=== PATIENT | male | born 1965 | race Caucasian/White ===

== ENCOUNTER → 2017-08-06 | Outpatient (CLI) | payer BC, SELFPAY | PROVIDERS: PCP Family Medicine; Visit Provider Family Medicine | DX: J90 Pleural effusion, not elsewhere classified (principal) | CPT/HCPCS: 71260; Q9967 ==

== ENCOUNTER → 2017-08-16 15:29 | Outpatient (CLI) | payer OTHER, SELFPAY ==
--- NOTE | 2017-08-16 15:35 | XR_ITS ---
XR chest 2V HISTORY: ITS.REASON: COUGH, PLEURAL EFFUSION ORDERING PHYSICIAN: Ramsey Mcdermott MD PATIENT AGE: 52 years COMPARISON: 07/12/2017 FINDINGS: The cardiomediastinal silhouette and pulmonary vascularity are within normal limits. There remains atelectatic changes in the right lung base. The right-sided pleural effusion has decreased in size with only trace effusion noted. Right middle lobe airspace disease has improved. Left pleural effusion is also decreased in size with only small sliver of fluid noted. IMPRESSION: 1. Improved bilateral effusions with persistent but improving right basilar atelectasis and right middle lobe consolidation
== END ==
PROVIDERS: PCP Family Medicine; Visit Provider Family Medicine
DX: R05 Cough (principal); J90 Pleural effusion, not elsewhere classified
CPT/HCPCS: 71046

== ENCOUNTER → 2017-10-04 11:06 | Outpatient (CLI) | payer OTHER, SELFPAY ==
--- NOTE | 2017-10-04 11:20 | XR_ITS ---
XR chest 2V HISTORY: ITS.REASON: PLEURAL EFFUSION ORDERING PHYSICIAN: Ramsey Mcdermott MD PATIENT AGE: 52 years COMPARISON: 08/16/2017 FINDINGS: Unremarkable cardiovascular structures. There remains some atelectatic changes in the right lung base and right middle lobe. There remains some minimal bilateral pleural effusions. No acute bony anomalies. IMPRESSION: Overall no change mild atelectasis in the right lower and right middle lobe with tiny bilateral effusions
[2017-10-04 11:42] LABS: Hemoglobin A1C 5.6 % (0.0-7.0)
[2017-10-04 13:47] LABS: Alanine Aminotransferase 52 U/L (12-78); Albumin Level 4.1 gm/dL (3.4-5.0); Albumin/Globulin Ratio 1.2 (1.1-1.8); Alkaline Phosphatase 109 U/L (46-116); Aspartate Amino Transferase 24 U/L (15-37); Bilirubin,Total 0.3 mg/dL (0.2-1.0); Blood Urea Nitrogen 19 mg/dL (7-18); Calcium 8.8 mg/dL (8.5-10.1); Carbon Dioxide 30 mmol/L (21.0-32.0); Chloride 102 mmol/L (98-107); Chol/HDL Ratio 3.9 (1-3.5); Cholesterol 207 mg/dL (140-200); Creatinine,Serum 1.29 mg/dL (0.70-1.30); Estimated Glomerular Filt Rate 58 ml/min (>60); GFR (African American) 70 ML/MIN (>60); Globulin 3.5 gm/dl (1.3-3.2); Glucose 107 mg/dL (74-106); HDL Cholesterol 53 mg/dL (27-67); LDL Cholesterol 113 mg/dL (0-130); Magnesium 1.8 mg/dL (1.4-2.2); Phosphorous 3.2 mg/dL (2.4-4.9); Sodium 140 mmol/L (136-145); Thyroid Stimulating Hormone 2.53 uIU/ml (0.358-3.740); Total Protein,Serum 7.6 gm/dL (6.4-8.2); Triglycerides 204 mg/dL (30-200); VLDL Cholesterol 41 mg/dL (0-40)
[2017-10-05 09:19] LABS: Creatinine, Urine 139.4 mg/dL (Not Estab.); Microalbumin, Urine 310.9 ug/mL (Not Estab.)
[2017-10-05 18:01] LABS: Vitamin B12 284 pg/mL (232-1245); Vitamin D 25 Hydroxy 15.4 ng/mL (30.0-100.0)
== END ==
LOC: RAD 11:06
PROVIDERS: PCP Family Medicine; Visit Provider Family Medicine
DX: R53.83 Other fatigue (principal); I10 Essential (primary) hypertension; E78.2 Mixed hyperlipidemia; R73.01 Impaired fasting glucose; J90 Pleural effusion, not elsewhere classified
CPT/HCPCS: 36415; 71046; 80053; 80061; 82043; 82570; 82607; 82652; 83036; 83735; 84100; 84443

== ENCOUNTER → 2019-11-16 07:34 | Outpatient (CLI) | payer OTHER, SELFPAY ==
[2019-11-16 07:40] LABS: Microscopic, Urine URINE MICROSCOPIC (MICROSCOPIC)
[2019-11-16 07:58] LABS: Basophils % 0.6 % (0.1-2.0); Eosinophils # 0.4 K/mm3 (0.0-0.4); Eosinophils % 6.7 % (0.1-12.0); Hematocrit 42.6 % (42.0-52.0); Hemoglobin 14.2 g/dL (14.1-18.0); Lymphocytes # 1.4 K/mm3 (0.7-4.5); Lymphocytes % 23.3 % (10-50); Mean Corpuscular HGB Conc 33.4 g/dL (31.8-35.4); Mean Corpuscular Hemoglobin 30.2 pg (27.0-31.2); Mean Corpuscular Volume 90.4 fl (80-94); Mean Platelet Volume 7.6 fl (7.4-10.4); Monocytes # 0.5 K/mm3 (0.1-1.0); Monocytes % 7.9 % (1.7-9.3); Neutrophils # 3.7 K/mm3 (1.8-7.8); Neutrophils % 61.6 % (37.0-80.0); Platelet Count 180 K/mm3 (142-424); Red Blood Count 4.71 M/mm3 (4.60-6.20); Red Cell Distribution Width 14.9 % (11.5-17.5)
[2019-11-16 10:24] LABS: Chloride 100 mmol/L (98-107); Potassium 3.2 mmoL/L (3.5-5.1); Sodium 140 mmol/L (136-145)
[2019-11-16 10:25] LABS: Albumin Level 4.1 g/dl (3.5-5.0)
[2019-11-16 10:27] LABS: Anion Gap 13.2 mEq/L (5-15); Blood Urea Nitrogen 34 mg/dl (9-20); Carbon Dioxide 30 mmol/L (22.0-30.0); Estimated Glomerular Filt Rate 28 ml/min (>60); GFR (African American) 34 ML/MIN (>60)
[2019-11-16 10:28] LABS: Calcium 9.4 mg/dl (8.4-10.2); Glucose 99 mg/dl (74-100); Phosphorous 3.3 mg/dl (2.5-4.5)
[2019-11-16 11:33] LABS: Appearance,Urine CLEAR (Clear); Bilirubin,Urine Negative (Negative); Blood, Urine TRACE-I (Negative); Color,Urine YELLOW (Yellow); Glucose,Urine (UA) Negative (Negative); Ketones,Urine Negative (Negative); Leukocyte Esterase,Urine Negative (Negative); Nitrate,Urine Negative (Negative); Protein,Urine 2+ (Negative); Urobilinogen,Urine 0.2 EU/dl (0.2)
[2019-11-16 11:47] LABS: Creatinine,Urine Random 89 mg/dL (Not Estab.); Squamous Epithelial Cell,Urine Occasional #/hpf (0-5); WBC,Urine Occasional #/hpf (0-3)
[2019-11-17 08:03] LABS: Vitamin D 25 Hydroxy 25.9 ng/mL (30.0-100.0)
[2019-11-17 14:58] LABS: Parathyroid Hormone Intact 73 pg/mL (15-65)
== END ==
LOC: LAB 07:35
PROVIDERS: Visit Provider Internal Medicine Nephrology
DX: N18.3 Chronic kidney disease, stage 3 (moderate) (principal)
CPT/HCPCS: 36415; 80069; 81001; 82570; 82652; 83970; 84155; 85025

== ENCOUNTER → 2020-02-01 14:17 | Outpatient (CLI) | payer OTHER, SELFPAY ==
[2020-02-01 14:27] LABS: Microscopic, Urine URINE MICROSCOPIC (MICROSCOPIC)
[2020-02-01 15:13] LABS: Appearance,Urine CLEAR (Clear); Bilirubin,Urine Negative (Negative); Blood, Urine TRACE-L (Negative); Color,Urine YELLOW (Yellow); Glucose,Urine (UA) Negative (Negative); Ketones,Urine Negative (Negative); Leukocyte Esterase,Urine Negative (Negative); Nitrate,Urine Negative (Negative); Protein,Urine 3+ (Negative); Specific Gravity, Urine >= 1.030 (1.005-1.030); Urobilinogen,Urine 0.2 EU/dl (0.2)
[2020-02-01 15:25] LABS: WBC,Urine Occasional #/hpf (0-3)
[2020-02-01 15:26] LABS: Bacteria,Urine Trace /lpf; Squamous Epithelial Cell,Urine Occasional #/hpf (0-5)
[2020-02-01 15:28] LABS: Creatinine,Urine Random 253 mg/dL (Not Estab.)
[2020-02-01 15:59] LABS: Albumin Level 4.2 g/dl (3.5-5.0); Anion Gap 14.9 mEq/L (5-15); Blood Urea Nitrogen 29 mg/dl (9-20); Calcium 9.1 mg/dl (8.4-10.2); Carbon Dioxide 27 mmol/L (22.0-30.0); Chloride 100 mmol/L (98-107); Estimated Glomerular Filt Rate 24 ml/min (>60); GFR (African American) 29 ML/MIN (>60); Glucose 97 mg/dl (74-100); Sodium 139 mmol/L (136-145)
[2020-02-01 16:16] LABS: Potassium 2.9 mmoL/L (3.5-5.1)
[2020-02-03 08:40] LABS: HIV Screen 4th Generation wRfx Non Reactive (Non Reactive)
[2020-02-03 10:14] LABS: Hep A Ab, IgM Negative (Negative); Hepatitis B Core Antibody IgM Negative (Negative); Hepatitis B Surface Antigen Negative (Negative)
[2020-02-03 10:59] LABS: Complement C3 131 mg/dL (82-167); Hepatitis C Antibody <0.1 s/co ratio (0.0-0.9)
[2020-02-03 15:10] LABS: Immunoglobulin A, Qn 349 mg/dL (90-386); Immunoglobulin G, Qn 1000 mg/dL (603-1613)
[2020-02-03 17:09] LABS: Free Kappa Lt Chains 55.5 mg/L (3.3-19.4); Free Lambda Lt Chains 38.2 mg/L (5.7-26.3)
[2020-02-04 01:39] LABS: Immunoglobulin M, Qn 15 mg/dL (20-172)
[2020-02-13 18:27] LABS: Antinuclear Antibodies (ANA) NEGATIVE
[2020-02-13 18:28] LABS: Albumin 3.6; Alpha-1-Globulin 0.1; Alpha-2-Globulin 0.9; Protein, Total 6.7
== END ==
LOC: LAB 14:18
PROVIDERS: Visit Provider Internal Medicine Nephrology
DX: N18.3 Chronic kidney disease, stage 3 (moderate) (principal); R80.9 Proteinuria, unspecified
CPT/HCPCS: 36415; 80069; 80074; 81001; 82570; 82784; 83883; 84155; 84165; 86038; 86161; 86334; 86703; G0432

== ENCOUNTER → 2020-02-05 14:30 | Outpatient (CLI) | payer OTHER, SELFPAY ==
--- NOTE | 2020-02-05 14:54 | US_ITS ---
PROCEDURE: US KIDNEY CLINICAL INDICATION: CKD STAGE III COMPARISON: No exams were available for comparison FINDINGS: The right kidney is [id number]. Mild hydronephrosis is noted. There is some over increase in renal cortical echogenicity. The left kidney is [id number]. Moderate hydronephrosis is demonstrated. There is abnormal increased renal cortical echogenicity. IMPRESSION: Bilateral hydronephrosis, increased bilateral renal cortical echogenicity consistent with chronic renal disease. Dictated by: Neil Oliva 02/05/2020 16:14 Electronically signed by Neil Oliva in [place] 02/05/2020 16:14
== END ==
PROVIDERS: PCP Family Medicine; Visit Provider Internal Medicine Nephrology
DX: N18.3 Chronic kidney disease, stage 3 (moderate) (principal)
CPT/HCPCS: 76770

== ENCOUNTER → 2020-02-09 14:15 | Outpatient (CLI) | payer OTHER, SELFPAY ==
[2020-02-09 15:14] LABS: Chloride 103 mmol/L (98-107); Potassium 3.5 mmoL/L (3.5-5.1); Sodium 139 mmol/L (136-145)
[2020-02-09 15:17] LABS: Blood Urea Nitrogen 34 mg/dl (9-20)
[2020-02-09 15:18] LABS: Anion Gap 9.5 mEq/L (5-15); Calcium 9.2 mg/dl (8.4-10.2); Carbon Dioxide 30 mmol/L (22.0-30.0); Estimated Glomerular Filt Rate 26 ml/min (>60); GFR (African American) 31 ML/MIN (>60); Glucose 91 mg/dl (74-100)
== END ==
PROVIDERS: Visit Provider Internal Medicine Nephrology
DX: E87.6 Hypokalemia (principal)
CPT/HCPCS: 36415; 80048

== ENCOUNTER → 2020-02-11 13:40 | Outpatient (POV) | payer OTHER, SELFPAY | PROVIDERS: Visit Provider Internal Medicine Nephrology | DX: Z00.00 Encounter for general adult medical examination without abnormal findings (principal) ==

== ENCOUNTER → 2020-03-08 14:07 | Outpatient (CLI) | payer OTHER, SELFPAY ==
--- NOTE | 2020-03-08 14:14 | CT_ITS ---
PROCEDURE: CT ABDOMEN PELVIS WO CON CLINICAL INDICATION: HYDRONEPHROSIS, BILATERAL Lower kidney function. COMPARISON: No exams were available for comparison TECHNIQUE: Axial images obtained with sagittal and coronal reformats. All CT scans at the facility use one or more dose reduction, viz: automated exposure control, ma/kV adjustment per patient size (including targeted exams where dose is matched to indication, i.e. head), or iterative reconstruction technique. FINDINGS: LOWER THORAX: No acute finding. Fibrotic atelectatic changes are seen inferiorly in the lingula and posteriorly in the right lower lung. The heart appears top normal in size. ABDOMEN & PELVIS: Hepatobiliary: The liver has a normal size with a smooth surface. The hepatic and portal veins are grossly appear patent. There is a partially contracted gallbladder. The biliary ductal system is within normal limits. Pancreas: Normal unenhanced pancreas. Spleen: The spleen is not enlarged. Small calcified granuloma is present. Adrenals: There is a 1.5 centimeters left adrenal nodule is seen probably an adenoma although alternative etiologies not ruled out. Normal right adrenal gland. Kidneys, ureters and bladder: Both kidneys have normal. Multiple parapelvic renal cysts are seen bilaterally, left side more than the right. The largest is a 4.3 centimeter cyst seen in upper/mid left kidney. A small 2 millimeter calcification is seen at the left renal pelvis, likely a vascular. There is left renal cortical mild thinning. Neither kidney shows calculi or evidence of hydronephrosis. Both ureters have normal course and caliber. The urinary bladder is partially empty. No ureteral or bladder calculus is identified. Gastrointestinal: The stomach and small bowel are normal with no obstruction or inflammation. The large bowel is within normal limits. Moderate amount of retained stool is seen in the ascending and transverse colon. Reproductive organs: Normal size prostate gland. Lymphatic system: A few small para-aortic reactive lymph nodes are seen. Otherwise no significant adenopathy is demonstrated within the abdomen/pelvis. Vasculature: Moderate atherosclerotic calcification of the infrarenal aorta. Normal caliber abdominal aorta. Peritoneum: No free fluid, free air or inflammation. Abdominal wall and musculoskeletal: There is a moderately large size umbilical hernia seen containing omental fat. Multiple small reactive bilateral inguinal lymph nodes. Straightening of normal lumbar lordosis. Degenerative thoracolumbar endplate spondylosis with anterior marginal osteophytes. IMPRESSION: 1. No acute finding demonstrated in the abdomen/pelvis 2. Neither kidney shows calculi or evidence of hydronephrosis. Multiple parapelvic renal cysts are seen, left side more than the right. 3. A moderately large size umbilical hernia is seen containing omental fat. Dictated by: Madi Washington 03/08/2020 16:04 Electronically signed by Madi Washington in [facility] 03/08/2020 16:04
[2020-03-08 14:43] LABS: Microscopic, Urine URINE MICROSCOPIC (MICROSCOPIC)
[2020-03-08 15:21] LABS: Albumin Level 4.4 g/dl (3.5-5.0); Blood Urea Nitrogen 29 mg/dl (9-20); Calcium 9.2 mg/dl (8.4-10.2); Carbon Dioxide 27 mmol/L (22.0-30.0); Chloride 101 mmol/L (98-107); Estimated Glomerular Filt Rate 22 ml/min (>60); GFR (African American) 26 ML/MIN (>60); Glucose 98 mg/dl (74-100); Sodium 140 mmol/L (136-145)
[2020-03-08 15:26] LABS: Appearance,Urine CLEAR (Clear); Bilirubin,Urine Negative (Negative); Blood, Urine 2+ (Negative); Color,Urine YELLOW (Yellow); Glucose,Urine (UA) Negative (Negative); Ketones,Urine Negative (Negative); Leukocyte Esterase,Urine Negative (Negative); Nitrate,Urine Negative (Negative); Protein,Urine 2+ (Negative); Specific Gravity, Urine >= 1.030 (1.005-1.030); Urobilinogen,Urine 0.2 EU/dl (0.2)
[2020-03-08 15:54] LABS: Creatinine,Urine Random 203 mg/dL (Not Estab.)
[2020-03-08 16:11] LABS: Phosphorous 3.5 mg/dl (2.5-4.5)
[2020-03-08 16:57] LABS: Bacteria,Urine Trace /lpf; RBC,Urine Occasional #/hpf (0-3); Squamous Epithelial Cell,Urine Occasional #/hpf (0-5); WBC,Urine Occasional #/hpf (0-3)
== END ==
PROVIDERS: PCP Family Medicine; Visit Provider Internal Medicine Nephrology
DX: N18.3 Chronic kidney disease, stage 3 (moderate) (principal); N13.30 Unspecified hydronephrosis
CPT/HCPCS: 36415; 74176; 80048; 80069; 81001; 82570; 84155

== ENCOUNTER → 2020-04-11 14:15 | Outpatient (CLI) | payer OTHER, SELFPAY ==
[2020-04-11 14:19] LABS: Microscopic, Urine URINE MICROSCOPIC (MICROSCOPIC)
[2020-04-11 14:32] LABS: Appearance,Urine CLEAR (Clear); Bilirubin,Urine Negative (Negative); Blood, Urine 2+ (Negative); Color,Urine YELLOW (Yellow); Glucose,Urine (UA) Negative (Negative); Ketones,Urine Negative (Negative); Leukocyte Esterase,Urine Negative (Negative); Nitrate,Urine Negative (Negative); Protein,Urine 3+ (Negative); Specific Gravity, Urine 1.025 (1.005-1.030); Urobilinogen,Urine 0.2 EU/dl (0.2)
[2020-04-11 15:29] LABS: Chloride 101 mmol/L (98-107)
[2020-04-11 15:30] LABS: Albumin Level 4.2 g/dl (3.5-5.0); Potassium 3.8 mmoL/L (3.5-5.1); Sodium 137 mmol/L (136-145)
[2020-04-11 15:32] LABS: Blood Urea Nitrogen 29 mg/dl (9-20); Estimated Glomerular Filt Rate 23 ml/min (>60); GFR (African American) 27 ML/MIN (>60)
[2020-04-11 15:33] LABS: Anion Gap 14.8 mEq/L (5-15); Calcium 9.3 mg/dl (8.4-10.2); Carbon Dioxide 25 mmol/L (22.0-30.0); Glucose 96 mg/dl (74-100); Phosphorous 4.2 mg/dl (2.5-4.5)
== END ==
PROVIDERS: Visit Provider Internal Medicine Nephrology
DX: N18.4 Chronic kidney disease, stage 4 (severe) (principal)
CPT/HCPCS: 36415; 80069; 81001

== ENCOUNTER → 2020-04-24 11:29 | Outpatient (CLI) | payer OTHER, SELFPAY ==
[2020-04-25 11:48] LABS: Covid-19 Nasal PCR Sendout UK NOT DETECTED
== END ==
PROVIDERS: PCP Family Medicine; Visit Provider Emergency Medicine
DX: Z03.818 Encounter for observation for suspected exposure to other biological agents ruled out (principal)
CPT/HCPCS: U0003

== ENCOUNTER → 2020-05-05 16:05 | Outpatient (CLI) | payer OTHER, SELFPAY ==
[2020-05-05 16:08] LABS: Microscopic, Urine URINE MICROSCOPIC (MICROSCOPIC)
[2020-05-05 16:28] LABS: Appearance,Urine CLEAR (Clear); Bilirubin,Urine Negative (Negative); Blood, Urine 2+ (Negative); Color,Urine YELLOW (Yellow); Glucose,Urine (UA) Negative (Negative); Ketones,Urine Negative (Negative); Leukocyte Esterase,Urine Negative (Negative); Nitrate,Urine Negative (Negative); Protein,Urine 3+ (Negative); Specific Gravity, Urine 1.025 (1.005-1.030); Urobilinogen,Urine 0.2 EU/dl (0.2)
[2020-05-05 16:30] LABS: Basophils # 0.1 K/mm3 (0-0.2); Basophils % 0.6 % (0.1-2.0); Eosinophils # 0.7 K/mm3 (0.0-0.4); Eosinophils % 7.3 % (0.1-12.0); Hematocrit 38.5 % (42.0-52.0); Hemoglobin 13.5 g/dL (14.1-18.0); Lymphocytes # 1.9 K/mm3 (0.7-4.5); Lymphocytes % 20.7 % (10-50); Mean Corpuscular HGB Conc 35.2 g/dL (31.8-35.4); Mean Corpuscular Volume 91.1 fl (80-94); Mean Platelet Volume 6.9 fl (7.4-10.4); Monocytes # 0.9 K/mm3 (0.1-1.0); Monocytes % 9.6 % (1.7-9.3); Neutrophils # 5.6 K/mm3 (1.8-7.8); Neutrophils % 61.8 % (37.0-80.0); Platelet Count 204 K/mm3 (142-424); Red Blood Count 4.23 M/mm3 (4.60-6.20); Red Cell Distribution Width 14.8 % (11.5-17.5)
[2020-05-05 16:34] LABS: Creatinine,Urine Random 161 mg/dL (Not Estab.)
[2020-05-05 17:01] LABS: Squamous Epithelial Cell,Urine Occasional #/hpf (0-5)
[2020-05-05 20:28] LABS: Albumin Level 4.3 g/dl (3.5-5.0); Chloride 103 mmol/L (98-107); Potassium 4.6 mmoL/L (3.5-5.1); Sodium 136 mmol/L (136-145)
[2020-05-05 20:31] LABS: Anion Gap 16.6 mEq/L (5-15); Blood Urea Nitrogen 39 mg/dl (9-20); Carbon Dioxide 21 mmol/L (22.0-30.0); Estimated Glomerular Filt Rate 18 ml/min (>60); GFR (African American) 21 ML/MIN (>60); Phosphorous 4.3 mg/dl (2.5-4.5)
[2020-05-05 20:32] LABS: Glucose 131 mg/dl (74-100)
== END ==
PROVIDERS: Visit Provider Internal Medicine Nephrology
DX: I12.9 Hypertensive chronic kidney disease with stage 1 through stage 4 chronic kidney disease, or unspecified chronic kidney disease (principal); N18.4 Chronic kidney disease, stage 4 (severe)
CPT/HCPCS: 36415; 80069; 81001; 82570; 84155; 85025

== ENCOUNTER → 2020-05-19 14:31 | Outpatient (CLI) | payer OTHER, SELFPAY ==
[2020-05-19 17:13] LABS: Chloride 104 mmol/L (98-107)
[2020-05-19 17:14] LABS: Albumin Level 4.5 g/dl (3.5-5.0); Potassium 4.2 mmoL/L (3.5-5.1); Sodium 137 mmol/L (136-145)
[2020-05-19 17:16] LABS: Blood Urea Nitrogen 52 mg/dl (9-20); Estimated Glomerular Filt Rate 18 ml/min (>60); GFR (African American) 21 ML/MIN (>60)
[2020-05-19 17:17] LABS: Anion Gap 17.2 mEq/L (5-15); Calcium 9.2 mg/dl (8.4-10.2); Carbon Dioxide 20 mmol/L (22.0-30.0); Glucose 93 mg/dl (74-100); Phosphorous 4.8 mg/dl (2.5-4.5)
== END ==
PROVIDERS: Visit Provider Internal Medicine Nephrology
DX: I12.9 Hypertensive chronic kidney disease with stage 1 through stage 4 chronic kidney disease, or unspecified chronic kidney disease (principal); N18.4 Chronic kidney disease, stage 4 (severe)
CPT/HCPCS: 36415; 80069

== ENCOUNTER → 2020-05-23 14:52 | Outpatient (POV) | payer OTHER, SELFPAY | PROVIDERS: Visit Provider Internal Medicine Nephrology | DX: Z00.00 Encounter for general adult medical examination without abnormal findings (principal) ==

== ENCOUNTER → 2020-06-07 16:05 | Outpatient (CLI) | payer OTHER, SELFPAY ==
[2020-06-07 16:10] LABS: Microscopic, Urine URINE MICROSCOPIC (MICROSCOPIC)
[2020-06-07 16:48] LABS: Basophils % 0.5 % (0.1-2.0); Eosinophils # 0.4 K/mm3 (0.0-0.4); Eosinophils % 5.4 % (0.1-12.0); Hematocrit 37.2 % (42.0-52.0); Hemoglobin 12.7 g/dL (14.1-18.0); Lymphocytes # 1.5 K/mm3 (0.7-4.5); Lymphocytes % 19.4 % (10-50); Mean Corpuscular HGB Conc 34.2 g/dL (31.8-35.4); Mean Corpuscular Hemoglobin 30.8 pg (27.0-31.2); Mean Corpuscular Volume 90.2 fl (80-94); Mean Platelet Volume 7.6 fl (7.4-10.4); Monocytes # 0.7 K/mm3 (0.1-1.0); Monocytes % 9.9 % (1.7-9.3); Neutrophils # 4.9 K/mm3 (1.8-7.8); Neutrophils % 64.8 % (37.0-80.0); Platelet Count 214 K/mm3 (142-424); Red Blood Count 4.13 M/mm3 (4.60-6.20); Red Cell Distribution Width 13.9 % (11.5-17.5); White Blood Count 7.5 K/mm3 (4.8-10.8)
[2020-06-07 16:55] LABS: Appearance,Urine CLEAR (Clear); Bilirubin,Urine Negative (Negative); Blood, Urine 1+ (Negative); Color,Urine YELLOW (Yellow); Glucose,Urine (UA) Negative (Negative); Ketones,Urine Negative (Negative); Leukocyte Esterase,Urine Negative (Negative); Nitrate,Urine Negative (Negative); Protein,Urine 1+ (Negative); Urobilinogen,Urine 0.2 EU/dl (0.2)
[2020-06-07 16:58] LABS: Chloride 96 mmol/L (98-107); Sodium 136 mmol/L (136-145)
[2020-06-07 16:59] LABS: Albumin Level 4.4 g/dl (3.5-5.0); Potassium 3.5 mmoL/L (3.5-5.1)
[2020-06-07 17:00] LABS: Creatinine,Urine Random 90 mg/dL (Not Estab.)
[2020-06-07 17:01] LABS: Blood Urea Nitrogen 48 mg/dl (9-20); Estimated Glomerular Filt Rate 18 ml/min (>60); GFR (African American) 21 ML/MIN (>60)
[2020-06-07 17:02] LABS: Anion Gap 14.5 mEq/L (5-15); Calcium 9.2 mg/dl (8.4-10.2); Carbon Dioxide 29 mmol/L (22.0-30.0); Glucose 111 mg/dl (74-100); Phosphorous 4.8 mg/dl (2.5-4.5)
[2020-06-07 17:48] LABS: Bacteria,Urine Trace /lpf; Squamous Epithelial Cell,Urine Occasional #/hpf (0-5); WBC,Urine Occasional #/hpf (0-3)
== END ==
PROVIDERS: Visit Provider Internal Medicine Nephrology
DX: N18.4 Chronic kidney disease, stage 4 (severe) (principal)
CPT/HCPCS: 36415; 80069; 81001; 82570; 84155; 85025

== ENCOUNTER → 2020-07-18 16:06 | Outpatient (CLI) | payer OTHER, SELFPAY ==
[2020-07-18 16:14] LABS: Microscopic, Urine URINE MICROSCOPIC (MICROSCOPIC)
[2020-07-18 16:37] LABS: Basophils % 0.5 % (0.1-2.0); Eosinophils # 0.4 K/mm3 (0.0-0.4); Eosinophils % 4.7 % (0.1-12.0); Hematocrit 40.6 % (42.0-52.0); Hemoglobin 13.5 g/dL (14.1-18.0); Lymphocytes # 1.9 K/mm3 (0.7-4.5); Lymphocytes % 24.9 % (10-50); Mean Corpuscular HGB Conc 33.4 g/dL (31.8-35.4); Mean Corpuscular Hemoglobin 30.4 pg (27.0-31.2); Mean Corpuscular Volume 91.2 fl (80-94); Mean Platelet Volume 7.3 fl (7.4-10.4); Monocytes # 0.7 K/mm3 (0.1-1.0); Monocytes % 8.4 % (1.7-9.3); Neutrophils # 4.7 K/mm3 (1.8-7.8); Neutrophils % 61.5 % (37.0-80.0); Platelet Count 225 K/mm3 (142-424); Red Blood Count 4.45 M/mm3 (4.60-6.20); Red Cell Distribution Width 14.2 % (11.5-17.5); White Blood Count 7.7 K/mm3 (4.8-10.8)
[2020-07-18 18:54] LABS: Albumin Level 4.7 g/dl (3.5-5.0); Anion Gap 16.9 mEq/L (5-15); Blood Urea Nitrogen 53 mg/dl (9-20); Calcium 9.5 mg/dl (8.4-10.2); Carbon Dioxide 24 mmol/L (22.0-30.0); Chloride 100 mmol/L (98-107); Estimated Glomerular Filt Rate 16 ml/min (>60); GFR (African American) 19 ML/MIN (>60); Glucose 96 mg/dl (74-100); Phosphorous 4.6 mg/dl (2.5-4.5); Potassium 3.9 mmoL/L (3.5-5.1); Sodium 137 mmol/L (136-145)
[2020-07-18 20:10] LABS: Appearance,Urine CLEAR (Clear); Bilirubin,Urine Negative (Negative); Blood, Urine Negative (Negative); Color,Urine YELLOW (Yellow); Glucose,Urine (UA) Negative (Negative); Ketones,Urine Negative (Negative); Leukocyte Esterase,Urine Negative (Negative); Nitrate,Urine Negative (Negative); Protein,Urine 1+ (Negative); Specific Gravity, Urine 1.025 (1.005-1.030); Urobilinogen,Urine 0.2 EU/dl (0.2)
[2020-07-18 20:14] LABS: Amorphous Sediment,Urine Trace /lpf
[2020-07-18 20:19] LABS: Creatinine,Urine Random 128 mg/dL (Not Estab.)
== END ==
PROVIDERS: Visit Provider Internal Medicine Nephrology
DX: I10 Essential (primary) hypertension (principal); N18.4 Chronic kidney disease, stage 4 (severe)
CPT/HCPCS: 36415; 80069; 81001; 82570; 84155; 85025

== ENCOUNTER → 2020-07-25 14:13 | Outpatient (POV) | payer OTHER, SELFPAY | PROVIDERS: Visit Provider Internal Medicine Nephrology | DX: Z00.00 Encounter for general adult medical examination without abnormal findings (principal) ==

== ENCOUNTER → 2020-08-15 14:21 | Outpatient (CLI) | payer OTHER, SELFPAY ==
[2020-08-15 14:26] LABS: Microscopic, Urine URINE MICROSCOPIC (MICROSCOPIC)
[2020-08-15 14:50] LABS: Appearance,Urine CLEAR (Clear); Bilirubin,Urine Negative (Negative); Blood, Urine Negative (Negative); Color,Urine YELLOW (Yellow); Glucose,Urine (UA) Negative (Negative); Ketones,Urine Negative (Negative); Leukocyte Esterase,Urine Negative (Negative); Nitrate,Urine Negative (Negative); Protein,Urine 1+ (Negative); Urobilinogen,Urine 0.2 EU/dl (0.2)
[2020-08-15 14:51] LABS: Basophils # 0.1 K/mm3 (0-0.2); Basophils % 0.7 % (0.1-2.0); Eosinophils # 0.4 K/mm3 (0.0-0.4); Eosinophils % 4.9 % (0.1-12.0); Hematocrit 41.2 % (42.0-52.0); Hemoglobin 14.2 g/dL (14.1-18.0); Lymphocytes # 1.5 K/mm3 (0.7-4.5); Lymphocytes % 20.2 % (10-50); Mean Corpuscular HGB Conc 34.5 g/dL (31.8-35.4); Mean Corpuscular Hemoglobin 31.4 pg (27.0-31.2); Mean Platelet Volume 7.5 fl (7.4-10.4); Monocytes # 0.7 K/mm3 (0.1-1.0); Monocytes % 9.3 % (1.7-9.3); Neutrophils # 4.7 K/mm3 (1.8-7.8); Neutrophils % 64.9 % (37.0-80.0); Platelet Count 251 K/mm3 (142-424); Red Blood Count 4.53 M/mm3 (4.60-6.20); Red Cell Distribution Width 14.7 % (11.5-17.5); White Blood Count 7.3 K/mm3 (4.8-10.8)
[2020-08-15 15:21] LABS: RBC,Urine Occasional #/hpf (0-3)
[2020-08-15 15:26] LABS: Albumin Level 4.8 g/dl (3.5-5.0); Anion Gap 17.1 mEq/L (5-15); Blood Urea Nitrogen 52 mg/dl (9-20); Calcium 9.6 mg/dl (8.4-10.2); Carbon Dioxide 25 mmol/L (22.0-30.0); Chloride 100 mmol/L (98-107); Estimated Glomerular Filt Rate 18 ml/min (>60); GFR (African American) 21 ML/MIN (>60); Glucose 102 mg/dl (74-100); Phosphorous 4.6 mg/dl (2.5-4.5); Potassium 4.1 mmoL/L (3.5-5.1); Sodium 138 mmol/L (136-145)
[2020-08-15 15:39] LABS: Intact Parathyroid Hormone 222.8 pg/mL (7.5-53.5)
[2020-08-15 15:43] LABS: 25-OH Vitamin D, Total 29.5 ng/mL (30-100)
[2020-08-15 15:51] LABS: Creatinine,Urine Random 137 mg/dL (Not Estab.)
== END ==
PROVIDERS: Visit Provider Internal Medicine Nephrology
DX: I12.9 Hypertensive chronic kidney disease with stage 1 through stage 4 chronic kidney disease, or unspecified chronic kidney disease (principal); N18.4 Chronic kidney disease, stage 4 (severe)
CPT/HCPCS: 36415; 80069; 81001; 82306; 82330; 82570; 83970; 84155; 85025

== ENCOUNTER → 2020-08-22 14:26 | Outpatient (POV) | payer OTHER, SELFPAY | PROVIDERS: Visit Provider Internal Medicine Nephrology | DX: Z00.00 Encounter for general adult medical examination without abnormal findings (principal) ==

== ENCOUNTER → 2020-11-10 10:33 | Outpatient (CLI) | payer OTHER, SELFPAY ==
[2020-11-10 10:36] LABS: Microscopic, Urine URINE MICROSCOPIC (MICROSCOPIC)
[2020-11-10 11:02] LABS: Appearance,Urine CLEAR (Clear); Bilirubin,Urine Negative (Negative); Blood, Urine Negative (Negative); Color,Urine YELLOW (Yellow); Glucose,Urine (UA) Negative (Negative); Ketones,Urine Negative (Negative); Leukocyte Esterase,Urine Negative (Negative); Nitrate,Urine Negative (Negative); PH,Urine 5.5 (5.0-8.5); Protein,Urine Negative (Negative); Urobilinogen,Urine 0.2 EU/dl (0.2)
[2020-11-10 11:04] LABS: Basophils % 0.5 % (0.1-2.0); Eosinophils # 0.4 K/mm3 (0.0-0.4); Eosinophils % 6.8 % (0.1-12.0); Hematocrit 39.2 % (42.0-52.0); Lymphocytes # 1.1 K/mm3 (0.7-4.5); Mean Corpuscular HGB Conc 33.3 g/dL (31.8-35.4); Mean Corpuscular Hemoglobin 30.3 pg (27.0-31.2); Mean Platelet Volume 7.6 fl (7.4-10.4); Monocytes # 0.5 K/mm3 (0.1-1.0); Monocytes % 9.7 % (1.7-9.3); Neutrophils # 3.4 K/mm3 (1.8-7.8); Neutrophils % 63.1 % (37.0-80.0); Platelet Count 183 K/mm3 (142-424); Red Blood Count 4.31 M/mm3 (4.60-6.20); Red Cell Distribution Width 13.7 % (11.5-17.5); White Blood Count 5.4 K/mm3 (4.8-10.8)
[2020-11-10 11:10] LABS: Creatinine,Urine Random 79 mg/dL (Not Estab.)
[2020-11-10 11:11] LABS: Squamous Epithelial Cell,Urine Occasional #/hpf (0-5); WBC,Urine Occasional #/hpf (0-3)
[2020-11-10 11:36] LABS: Albumin Level 4.7 g/dl (3.5-5.0); Anion Gap 16.8 mEq/L (5-15); Blood Urea Nitrogen 57 mg/dl (9-20); Calcium 9.5 mg/dl (8.4-10.2); Carbon Dioxide 20 mmol/L (22.0-30.0); Chloride 105 mmol/L (98-107); Estimated Glomerular Filt Rate 19 ml/min (>60); GFR (African American) 24 ML/MIN (>60); Glucose 114 mg/dl (74-100); Phosphorous 4.6 mg/dl (2.5-4.5); Potassium 4.8 mmoL/L (3.5-5.1); Sodium 137 mmol/L (136-145)
== END ==
PROVIDERS: Visit Provider Internal Medicine Nephrology
DX: N18.4 Chronic kidney disease, stage 4 (severe) (principal); I10 Essential (primary) hypertension
CPT/HCPCS: 36415; 80069; 81001; 82570; 84155; 85025

== ENCOUNTER → 2021-01-05 11:36 | Outpatient (CLI) | payer OTHER, SELFPAY ==
--- NOTE | 2021-01-05 11:44 | XR_ITS ---
PROCEDURE: XR CHEST 2V CLINICAL HISTORY: CHEST PRESSURE COMPARISON: CR CXR CHEST(2 VIEWS-NOT PORTABLE) from 07/12/[address] [facility] [address] CHEST W/ CONTRAST from 08/06/2017 CR CXR2V XR chest 2V from 08/16/2017 DX CXR2V XR chest 2V from 10/04/[address] ABDOMEN PELVIS WO CON from 03/08/2020 FINDINGS: The cardiomediastinal silhouette and pulmonary vascularity are within normal limits. No lobar consolidation or collapse is evident. Blunting of both CP angle suggesting small bilateral pleural effusions. Degenerative changes thoracic spine. IMPRESSION: Small bilateral pleural effusions otherwise negative Dictated by: Teofilo Bosch MD 01/05/2021 14:04 Teofilo Bosch MD in [facility] 01/05/2021 14:04
[2021-01-05 12:05] LABS: Basophils % 0.3 % (0.1-2.0); Eosinophils # 0.2 K/mm3 (0.0-0.4); Eosinophils % 3.7 % (0.1-12.0); Hematocrit 37.4 % (42.0-52.0); Hemoglobin 12.4 g/dL (14.1-18.0); Lymphocytes # 1.1 K/mm3 (0.7-4.5); Lymphocytes % 20.6 % (10-50); Mean Corpuscular HGB Conc 33.1 g/dL (31.8-35.4); Mean Corpuscular Hemoglobin 30.3 pg (27.0-31.2); Mean Corpuscular Volume 91.5 fl (80-94); Mean Platelet Volume 7.9 fl (7.4-10.4); Monocytes # 0.5 K/mm3 (0.1-1.0); Monocytes % 8.7 % (1.7-9.3); Neutrophils # 3.6 K/mm3 (1.8-7.8); Neutrophils % 66.7 % (37.0-80.0); Platelet Count 216 K/mm3 (142-424); Red Blood Count 4.09 M/mm3 (4.60-6.20); Red Cell Distribution Width 13.8 % (11.5-17.5); White Blood Count 5.4 K/mm3 (4.8-10.8)
[2021-01-05 12:47] LABS: Chloride 108 mmol/L (98-107); Potassium 5.8 mmoL/L (3.5-5.1); Sodium 136 mmol/L (136-145)
[2021-01-05 12:49] LABS: Alanine Aminotransferase 34 U/L (12-78); Aspartate Amino Transferase 24 U/L (17-59); Blood Urea Nitrogen 72 mg/dl (9-20); Estimated Glomerular Filt Rate 14 ml/min (>60); GFR (African American) 17 ML/MIN (>60)
[2021-01-05 12:50] LABS: Albumin Level 4.8 g/dl (3.5-5.0); Albumin/Globulin Ratio 1.6 (1.1-1.8); Alkaline Phosphatase 64 U/L (38-126); Anion Gap 17.8 mEq/L (5-15); Bilirubin,Total 0.4 mg/dl (0.2-1.3); Calcium 9.1 mg/dl (8.4-10.2); Carbon Dioxide 16 mmol/L (22.0-30.0); Glucose 102 mg/dl (74-100); Magnesium 2.4 mg/dl (1.6-2.3); Phosphorous 5.4 mg/dl (2.5-4.5); Total Protein,Serum 7.8 g/dl (6.3-8.2)
[2021-01-05 13:34] LABS: Thyroid Stimulating Hormone 1.41 uIU/mL (0.465-4.68)
[2021-01-05 14:59] LABS: Vitamin B12 429 pg/mL (239-931)
== END ==
PROVIDERS: Visit Provider Family Medicine
DX: R07.89 Other chest pain (principal); R53.83 Other fatigue
CPT/HCPCS: 36415; 71046; 80053; 82306; 82607; 82746; 83735; 83970; 84100; 84443; 85025; 93005

== ENCOUNTER → 2021-02-04 08:02 | Outpatient (CLI) | payer OTHER, SELFPAY ==
[2021-02-04 08:17] LABS: Basophils % 0.3 % (0.1-2.0); Eosinophils # 0.2 K/mm3 (0.0-0.4); Eosinophils % 2.9 % (0.1-12.0); Hematocrit 34.5 % (42.0-52.0); Hemoglobin 11.4 g/dL (14.1-18.0); Lymphocytes # 1.1 K/mm3 (0.7-4.5); Lymphocytes % 15.3 % (10-50); Mean Corpuscular HGB Conc 33.1 g/dL (31.8-35.4); Mean Corpuscular Volume 93.6 fl (80-94); Mean Platelet Volume 8.1 fl (7.4-10.4); Monocytes # 0.5 K/mm3 (0.1-1.0); Monocytes % 7.5 % (1.7-9.3); Neutrophils # 5.2 K/mm3 (1.8-7.8); Neutrophils % 73.9 % (37.0-80.0); Platelet Count 217 K/mm3 (142-424); Red Blood Count 3.68 M/mm3 (4.60-6.20)
[2021-02-04 08:40] LABS: Chloride 110 mmol/L (98-107); Sodium 140 mmol/L (136-145)
[2021-02-04 08:41] LABS: Potassium 5.2 mmoL/L (3.5-5.1)
[2021-02-04 08:44] LABS: Anion Gap 16.2 mEq/L (5-15); Blood Urea Nitrogen 71 mg/dl (9-20); Carbon Dioxide 19 mmol/L (22.0-30.0); Estimated Glomerular Filt Rate 16 ml/min (>60); GFR (African American) 19 ML/MIN (>60); Glucose 109 mg/dl (74-100)
== END ==
PROVIDERS: Visit Provider Surgery
DX: Z01.812 Encounter for preprocedural laboratory examination (principal); Z11.52 Encounter for screening for COVID-19; K46.9 Unspecified abdominal hernia without obstruction or gangrene
CPT/HCPCS: 36415; 80048; 85025; U0003

== ENCOUNTER 2021-02-07 10:04 | Day surgery (SDC) | payer OTHER, SELFPAY ==
[2021-01-31 14:10] VITALS: BMI 30.5
[2021-02-07] VITALS (10 sets, daily range): BP systolic 124–146; BP diastolic 76–85; PULSE 67–89; RESP 12–20; TEMP 36.3–36.7; O2SAT 94–99
--- NOTE | 2021-02-07 12:25 | HMH.OPNOTE ---
Date of procedure: 02/07/21 Pre-op Diagnosis:: Umbilical hernia Post-op Diagnosis:: Same Procedure performed:: 1. Diagnostic laparoscopy 2. Open repair of umbilical hernia with placement of large sized (8 cm) Bard Ventralex Surgeon:: Gurjit Huertas MD SMALL BUSINESS REPRESENTATIVE:: Dillon Salazar Anesthesia: GETA Estimated blood loss (mL): 10 Clinical Note:: Patient is a pleasant 55-year-old male referred by Dr. Mcdermott for umbilical hernia. Patient states that he has had an umbilical hernia for several years. It has been present for approximately 3 to 5 years. Initially this was small and asymptomatic. However, recently it has increased in size dramatically and become symptomatic. He describes pain and discomfort. He is also had some minor nausea. Of note, he did have a CT scan done in February which revealed a moderately large umbilical hernia which appears to have about a 3 cm defect. It has affected his lifestyle with lifting and activities of daily living. Operative findings:: He had approximately up to a 3 cm defect. Operative note:: Patient was taken to the operating room. He was given preoperative intravenous antibiotics. In the operating room he was placed in supine position. General anesthesia was induced via endotracheal tube. Abdomen was prepped and draped in the standard surgical fashion. Through a small 5 mm left subcostal incision 5 mm optical trocar was inserted under laparoscopic surveillance. CO2 pneumoperitoneum was then achieved to 15 mmHg. Laparoscopic surveillance was carried out which revealed hernia without contents. He had a moderate sized defect. There was a generous hernia sac. Given the nature of this hernia was determined that the best plan of action would be laparoscopically directed open repair. At this time subumbilical skin incision was made. Dissection was carried down through subcutaneous tissues. Generous hernia sac was encountered. This was dissected free and incised down to the fascial edges. Hernia sac was sent off as specimen. Overall size of the defect appeared to measure up to about 3 cm. A large sized Bard Ventralex mesh measuring 8 cm circular was inserted into the peritoneal cavity. It was oriented in the prefascial space to cover the defect. The tails of the mesh were sutured superiorly and inferiorly to the fascia with interrupted 2-0 Prolene. The tails were then cut flush with the fascia. Fascia was closed over the mesh with interrupted 0 Ethibond sutures. At this time pneumoperitoneum was reestablished. Laparoscope was inserted. The mesh appeared to cover the defect well. To ensure appropriate coverage the mesh was secured around its periphery with several of the Optifix petra . This did require an additional 5 mm trocar site in the left lateral abdomen. Repair appeared adequate. CO2 pneumoperitoneum was then evacuated as the trochars were removed. The umbilical subdermis was reapproximated to the fascia with several interrupted 2-0 Vicryl sutures. Subdermal tissues were closed with running 3-0 Vicryl. Skin incision was closed with 4-0 Monocryl in a running subcuticular fashion. Clean dry sterile dressing was applied. Condition: stable Disposition: PACU Specimens:: Hernia sac Complications:: None immediately apparent
--- NOTE | 2021-02-07 14:02 | P.PN_ITS ---
[facility] Anesthesia Checklist - Patient Identification Patient Identification: Arm Band - Structural Data Admitted From: Home Planned Operative Procedure/s: Lap umbilical hernia repair Consent for Planned Operative Procedure(s) Verified: Yes Verified Documents: Surgical Consent, History and Physical - NPO Status Verified Time NPO: 00:00 - Additional verifications Anesthesia Reactions: No Hx Blood Transfusions: No Blood Transfusion Reaction: No - Airway Assessment C-Spine Mobility Assessed: Yes TMJ Mobility Assessed: Yes Dentition: Poor Dentition - Neurological Assessment Level of Consciousness: Awake, Alert - Anesthesia Plan Anesthesia Risk discussed: Yes Anesthesia Plan: Verified ASA Class: II Anesthesia Type: General [facility] History Medical History: Reports:: Hyperlipidemia, Hypertension Denies:: Cancer, Diabetes Mellitus Type 1, Diabetes Mellitus Type 2, Internal Pacemaker, MRSA, Seizures *Have you ever received a pneumonia vaccine?: No *Have you received a flu vaccine this season?: Yes Other Medical History: Denies: Blood Transfusion Reaction Anesthesia experience/problems:: None Other Surgeries: Yes: Colonoscopy. No: Pacemaker Amputation: No Fractures: No - *Social History Last grade of school completed: Advanced degree Smoking Status: Never smoker Alcohol Intake: current Alcohol Intake Frequency:: holidays/special occasions only Substance Use Type: denies use *Occupational Status:: employed Housing: house Household Members: none *Travel in the last 8 weeks: None Family Hx:: Cancer, Coronary Artery Disease
--- NOTE | 2021-02-07 14:04 | HMH.ANESI ---
[facility] Anesthesia Record Part I Intake, IV Amount: 1,300 Estimated blood loss (mL): 2 Urine output (mL): 0 Blood Pressure: 142/85 SaO2: 94 Pulse Rate: 89 Respiratory Rate: 12 Temperature: 97.4 F Patient is:: Awake, Drowsy Stable to PACU at:: 12:40
--- NOTE | 2021-02-08 11:03 | HMH.ANESII ---
[facility] Anesthesia Record Part II Discharge Time: 13:00 Destination: Surgical Day Care (OP Surgery) PACU nurse assessment reviewed?: Yes Patient Condition:: Good Anesthesia Complications:: None Swallowing reflex intact?: Yes Cyanosis?: No Blood Pressure: 127/80 Pulse Rate: 78 Temperature: 97.4 F Mental Status: Alert & Oriented Pain level:: 0 Nausea and/or vomitting:: None Intake, IV Amount: 0
[2021-02-08 11:04] VITALS: BP 127/80; PULSE 78; TEMP 36.3
== END 2021-02-07 13:54 | disposition home or self-care (01) ==
PROVIDERS: PCP Family Medicine; Visit Provider Surgery
PROC: 0WQF4ZZ Repair Abdominal Wall, Percutaneous Endoscopic Approach (ICD-10-PCS; CPT 49585; principal; 2021-02-07 12:00)
DX: K42.9 Umbilical hernia without obstruction or gangrene (principal); E78.5 Hyperlipidemia, unspecified; I10 Essential (primary) hypertension; Z80.9 Family history of malignant neoplasm, unspecified; Z82.49 Family history of ischemic heart disease and other diseases of the circulatory system; Z79.899 Other long term (current) drug therapy
CPT/HCPCS: 49585; 96374; C1781; J0131; J2405

== ENCOUNTER → 2021-02-13 11:34 | Outpatient (CLI) | payer OTHER, SELFPAY ==
[2021-02-13 11:39] LABS: Microscopic, Urine URINE MICROSCOPIC (MICROSCOPIC)
[2021-02-13 12:07] LABS: Basophils % 0.5 % (0.1-2.0); Eosinophils # 0.3 K/mm3 (0.0-0.4); Eosinophils % 4.3 % (0.1-12.0); Hematocrit 34.2 % (42.0-52.0); Lymphocytes # 1.1 K/mm3 (0.7-4.5); Lymphocytes % 17.3 % (10-50); Mean Corpuscular HGB Conc 32.3 g/dL (31.8-35.4); Mean Corpuscular Hemoglobin 30.6 pg (27.0-31.2); Mean Corpuscular Volume 94.7 fl (80-94); Monocytes # 0.6 K/mm3 (0.1-1.0); Monocytes % 9.9 % (1.7-9.3); Neutrophils # 4.3 K/mm3 (1.8-7.8); Platelet Count 262 K/mm3 (142-424); Red Blood Count 3.61 M/mm3 (4.60-6.20); Red Cell Distribution Width 13.3 % (11.5-17.5); White Blood Count 6.4 K/mm3 (4.8-10.8)
[2021-02-13 12:08] LABS: Appearance,Urine CLEAR (Clear); Bilirubin,Urine Negative (Negative); Blood, Urine Negative (Negative); Color,Urine YELLOW (Yellow); Glucose,Urine (UA) Negative (Negative); Ketones,Urine Negative (Negative); Leukocyte Esterase,Urine Negative (Negative); Nitrate,Urine Negative (Negative); Protein,Urine Negative (Negative); Urobilinogen,Urine 0.2 EU/dl (0.2)
[2021-02-13 12:30] LABS: Chloride 108 mmol/L (98-107); Potassium 4.8 mmoL/L (3.5-5.1); Sodium 141 mmol/L (136-145)
[2021-02-13 12:31] LABS: Albumin Level 4.2 g/dl (3.5-5.0)
[2021-02-13 12:33] LABS: Anion Gap 18.8 mEq/L (5-15); Blood Urea Nitrogen 54 mg/dl (9-20); Carbon Dioxide 19 mmol/L (22.0-30.0)
[2021-02-13 12:34] LABS: Calcium 9.3 mg/dl (8.4-10.2); Creatinine,Urine Random 108 mg/dL (Not Estab.); Glucose 104 mg/dl (74-100)
[2021-02-13 13:35] LABS: Creatinine,Serum 2.95 mg/dl (0.66-1.25); Estimated Glomerular Filt Rate 22 ml/min (>60); GFR (African American) 27 ML/MIN (>60)
== END ==
PROVIDERS: Visit Provider Internal Medicine Nephrology
DX: N18.4 Chronic kidney disease, stage 4 (severe) (principal)
CPT/HCPCS: 36415; 80069; 81001; 82570; 84155; 85025

== ENCOUNTER → 2021-02-20 14:21 | Outpatient (POV) | payer OTHER, SELFPAY | PROVIDERS: Visit Provider Internal Medicine Nephrology | DX: Z00.00 Encounter for general adult medical examination without abnormal findings (principal) ==

== ENCOUNTER 2021-04-06 14:17 | Emergency (ER) | payer OTHER, SELFPAY ==
[2021-04-06 16:18] VITALS: BP 140/85; PULSE 82; RESP 18; TEMP 36.9; O2SAT 98; BMI 29.8
[2021-04-06 16:40] VITALS: BP 132/72; PULSE 69; RESP 18; TEMP 37; O2SAT 98
--- NOTE | 2021-04-06 16:41 | HMH.EDUTC ---
[facility] [place] [facility] [place] Clinical Impression: Exposure to COVID-19 virus Disposition: Home, Self-Care Condition on Discharge: Good Instructions: DI for COVID-19 (Suspected or Confirmed ), Coronavirus Disease 2019, Preventing the Spread of Coronavirus Discharge Instructions Additional Instructions: *Monitor Temp, Over the counter Motrin or Tylenol as directed/as needed Tylenol every 4 hours and Motrin every 6 hours (as long as your family doctor has told you that you can take it) for fever or pain. and straight to ER if unable to lower temp less than 101.0 after medication given Follow up IMMEDIATELY for new or worsening symptoms or no Noticeable improvement over the next 48-72 hours. 911 for difficulty breathing or swallowing You were tested for today for COVID19 your test result should be back in the next 24-48 hours, you may call to the [facility] to see if your test results are back in the next 48 hours [phone] [facility] hours are 9am-9pm You was given a handout with instructions for Self Quarantine and Self isolation for while you wait on test results and what to do if they are positive If you are positive the Health Dept will be contacting you also Make sure to take your Vitamins Vit. C Vit D and Zinc if you can take them Referrals: Ramsey Mcdermott MD [Primary Care Provider] - As needed Forms: Work/School Release Time of Disposition: 16:45 Medical Decision Making - Bryan Inquiry Pt receiving controlled substance: No Bryan was queried for this patient: No Vital Signs: 04/06/21 16:18 Temperature 98.5 F Temperature Source Oral Pulse Rate [Right] 82 Respiratory Rate 18 Blood Pressure [Right Arm] 140/85 Blood Pressure Mean [Right Arm] 103 02 Sat by Pulse Oximetry 98 Oxygen Delivery Method Room Air Orders (Tests/Meds): ORDERS Category Date Time Status Covid-19 Nasal PCR ([facility]) Routine Lab 04/06/21 16:14 Ordered [facility] [place] [facility] [place] HPI - General Stated complaint: covid test Time Seen by Provider: 04/06/21 16:41 Mode of Arrival: Family Vehicle Source of Information: Patient Limitations: No Limitations Description of Symptoms (Recalled from Triage Doc. by RN): Patient reports he is here for a COVID test after being exposed to his significant other who tested positive today. Patient denies any symptoms of COVID. HEENT Symptoms (Recalled from RN notes): No Resp Symptoms (Recalled from RN notes): No Skin Symptoms (Recalled from RN notes): No MS Symptoms (Recalled from RN notes): No Functional Status (Recalled from RN notes): NA - History of Present Illness Provider Complaint: Patient state that he was around his girlfriend that recently tested positive for COVID state that he has not had any symptoms but wanted to get tested due to close contact with her - Related Data Home Medications Medication Instructions Recorded Confirmed carvedilol 25 mg tablet 25 mg PO DAILY tab 01/16/21 03/06/21 chlorthalidone 50 mg tablet 50 mg PO DAILY tab 01/16/21 03/06/21 hydralazine 100 mg tablet 100 mg PO DAILY tab 01/16/21 03/06/21 lisinopril 40 mg tablet 40 mg PO DAILY tab 01/16/21 03/06/21 nifedipine 90 mg tablet,extended 90 each PO BID 01/16/21 03/06/21 release spironolactone 100 mg tablet 100 mg PO DAILY tab 01/16/21 03/06/21 Allergies Allergy/AdvReac Type Severity Reaction Status Date / Time No Known Allergies Allergy Verified 03/06/21 09:38 - Worker's Comp Is this a Worker's Comp case?: No Is this an [facility] Worker's Comp?: No Is this a [place] Worker's Comp?: No H History - Hepatitis A Screen Drug use history?: No High risk sexual behaviors?: No History of sexually transmitted infection?: No Currently employed?: No Childcare worker?: No Do you have indoor plumbing?: Yes Do you have electricity?: Yes Attestation statement:: This patient has been screened for Hepatitis A risk factors. I have reviewed the patient's past medical history: Yes Medical History: Reports:: Hyperlipidemia, Hypertension Gt
--- NOTE | 2021-04-07 16:23 | PC.NURSE ---
notified pt of positive covid swab result
== END 2021-04-06 16:50 | disposition home or self-care (01) ==
PROVIDERS: Emergency Provider Nurse Practitioner; PCP Family Medicine
DX: U07.1 COVID-19 (principal); E78.5 Hyperlipidemia, unspecified; I10 Essential (primary) hypertension
CPT/HCPCS: 99202; G0463; U0003

== ENCOUNTER → 2021-07-19 16:27 | Outpatient (CLI) | payer OTHER, SELFPAY ==
[2021-07-19 16:29] LABS: Microscopic, Urine URINE MICROSCOPIC (MICROSCOPIC)
[2021-07-19 17:18] LABS: Hematocrit 36.1 % (42.0-52.0); Mean Corpuscular HGB Conc 33.1 g/dL (31.8-35.4); Mean Corpuscular Hemoglobin 30.6 pg (27.0-31.2); Mean Corpuscular Volume 92.5 fl (80-94); Platelet Count 222 K/mm3 (142-424); Red Cell Distribution Width 14.3 % (11.5-17.5); White Blood Count 5.6 K/mm3 (4.8-10.8)
[2021-07-19 17:50] LABS: Albumin Level 4.1 g/dl (3.5-5.0); Anion Gap 13.1 mEq/L (5-15); Blood Urea Nitrogen 52 mg/dl (9-20); Calcium 8.8 mg/dl (8.4-10.2); Carbon Dioxide 20 mmol/L (22.0-30.0); Chloride 108 mmol/L (98-107); Estimated Glomerular Filt Rate 22 ml/min (>60); GFR (African American) 26 ML/MIN (>60); Glucose 94 mg/dl (74-100); Phosphorous 4.6 mg/dl (2.5-4.5); Potassium 5.1 mmoL/L (3.5-5.1); Sodium 136 mmol/L (136-145)
[2021-07-19 18:00] LABS: Intact Parathyroid Hormone 209.7 pg/mL (7.5-53.5)
[2021-07-19 18:06] LABS: 25-OH Vitamin D, Total 31.7 ng/mL (30-100)
[2021-07-19 18:45] LABS: Appearance,Urine CLEAR (Clear); Bilirubin,Urine Negative (Negative); Blood, Urine Negative (Negative); Color,Urine YELLOW (Yellow); Glucose,Urine (UA) Negative (Negative); Ketones,Urine Negative (Negative); Leukocyte Esterase,Urine Negative (Negative); Nitrate,Urine Negative (Negative); Protein,Urine Negative (Negative); Specific Gravity, Urine 1.025 (1.005-1.030); Urobilinogen,Urine 0.2 EU/dl (0.2)
[2021-07-19 19:50] LABS: RBC,Urine Occasional #/hpf (0-3)
[2021-07-20 07:58] LABS: Creatinine,Urine Random 78 mg/dL (Not Estab.)
== END ==
PROVIDERS: Visit Provider Internal Medicine Nephrology
DX: N18.4 Chronic kidney disease, stage 4 (severe) (principal)
CPT/HCPCS: 36415; 80069; 81001; 82306; 82570; 83970; 84155; 85014; 85018; 85048; 85049

== ENCOUNTER → 2021-07-24 13:55 | Outpatient (POV) | payer OTHER, SELFPAY | PROVIDERS: Visit Provider Internal Medicine Nephrology | DX: Z00.00 Encounter for general adult medical examination without abnormal findings (principal) ==

== ENCOUNTER → 2021-10-05 16:01 | Outpatient (CLI) | payer OTHER, SELFPAY ==
[2021-10-05 16:10] LABS: Microscopic, Urine URINE MICROSCOPIC (MICROSCOPIC)
[2021-10-05 16:33] LABS: Basophils % 0.4 % (0.1-2.0); Eosinophils # 0.3 K/mm3 (0.0-0.4); Eosinophils % 5.6 % (0.1-12.0); Hematocrit 35.4 % (42.0-52.0); Hemoglobin 11.3 g/dL (14.1-18.0); Lymphocytes # 1.2 K/mm3 (0.7-4.5); Lymphocytes % 21.1 % (10-50); Mean Corpuscular HGB Conc 31.9 g/dL (31.8-35.4); Mean Corpuscular Hemoglobin 30.1 pg (27.0-31.2); Mean Corpuscular Volume 94.4 fl (80-94); Mean Platelet Volume 7.1 fl (7.4-10.4); Monocytes # 0.6 K/mm3 (0.1-1.0); Monocytes % 10.1 % (1.7-9.3); Neutrophils # 3.5 K/mm3 (1.8-7.8); Neutrophils % 62.7 % (37.0-80.0); Platelet Count 206 K/mm3 (142-424); Red Blood Count 3.75 M/mm3 (4.60-6.20); Red Cell Distribution Width 14.2 % (11.5-17.5); White Blood Count 5.5 K/mm3 (4.8-10.8)
[2021-10-05 16:34] LABS: Appearance,Urine CLEAR (Clear); Bilirubin,Urine Negative (Negative); Blood, Urine Negative (Negative); Color,Urine YELLOW (Yellow); Glucose,Urine (UA) Negative (Negative); Ketones,Urine Negative (Negative); Leukocyte Esterase,Urine Negative (Negative); Nitrate,Urine Negative (Negative); Protein,Urine Negative (Negative); Specific Gravity, Urine 1.025 (1.005-1.030); Urobilinogen,Urine 0.2 EU/dl (0.2)
[2021-10-05 17:06] LABS: Creatinine,Urine Random 143 mg/dL (Not Estab.)
[2021-10-05 17:34] LABS: Albumin Level 4.3 g/dl (3.5-5.0); Anion Gap 16.1 mEq/L (5-15); Blood Urea Nitrogen 44 mg/dl (9-20); Calcium 8.6 mg/dl (8.4-10.2); Carbon Dioxide 19 mmol/L (22.0-30.0); Chloride 109 mmol/L (98-107); Estimated Glomerular Filt Rate 17 ml/min (>60); GFR (African American) 20 ML/MIN (>60); Glucose 99 mg/dl (74-100); Phosphorous 4.4 mg/dl (2.5-4.5); Sodium 138 mmol/L (136-145)
[2021-10-05 17:57] LABS: Potassium 6.1 mmoL/L (3.5-5.1)
== END ==
PROVIDERS: Visit Provider Internal Medicine Nephrology
DX: N18.4 Chronic kidney disease, stage 4 (severe) (principal); R80.1 Persistent proteinuria, unspecified
CPT/HCPCS: 36415; 80069; 81001; 82570; 84155; 85025

== ENCOUNTER → 2021-10-11 16:08 | Outpatient (CLI) | payer OTHER, SELFPAY ==
[2021-10-11 16:53] LABS: Anion Gap 15.4 mEq/L (5-15); Blood Urea Nitrogen 43 mg/dl (9-20); Calcium 8.5 mg/dl (8.4-10.2); Carbon Dioxide 16 mmol/L (22.0-30.0); Chloride 109 mmol/L (98-107); Estimated Glomerular Filt Rate 21 ml/min (>60); GFR (African American) 25 ML/MIN (>60); Glucose 100 mg/dl (74-100); Potassium 5.4 mmoL/L (3.5-5.1); Sodium 135 mmol/L (136-145)
== END ==
LOC: LAB 16:09
PROVIDERS: Visit Provider Internal Medicine Nephrology
DX: E87.5 Hyperkalemia (principal)
CPT/HCPCS: 36415; 80048

== ENCOUNTER → 2021-10-12 14:46 | Outpatient (POV) | payer OTHER, SELFPAY | PROVIDERS: Visit Provider Internal Medicine Nephrology | DX: Z00.00 Encounter for general adult medical examination without abnormal findings (principal) ==

== ENCOUNTER → 2022-01-02 16:10 | Outpatient (CLI) | payer OTHER, SELFPAY ==
[2022-01-02 16:19] LABS: Microscopic, Urine URINE MICROSCOPIC (MICROSCOPIC)
[2022-01-02 17:19] LABS: Appearance,Urine CLEAR (Clear); Bilirubin,Urine Negative (Negative); Blood, Urine Negative (Negative); Color,Urine YELLOW (Yellow); Glucose,Urine (UA) Negative (Negative); Ketones,Urine Negative (Negative); Leukocyte Esterase,Urine Negative (Negative); Nitrate,Urine Negative (Negative); Protein,Urine Negative (Negative); Specific Gravity, Urine 1.025 (1.005-1.030); Urobilinogen,Urine 0.2 EU/dl (0.2)
[2022-01-02 17:26] LABS: Chloride 107 mmol/L (98-107)
[2022-01-02 17:27] LABS: Albumin Level 4.2 g/dl (3.5-5.0); Potassium 4.4 mmoL/L (3.5-5.1); Sodium 136 mmol/L (136-145)
[2022-01-02 17:28] LABS: Creatinine,Urine Random 142 mg/dL (Not Estab.)
[2022-01-02 17:29] LABS: Blood Urea Nitrogen 35 mg/dl (9-20); Estimated Glomerular Filt Rate 26 ml/min (>60); GFR (African American) 31 ML/MIN (>60)
[2022-01-02 17:30] LABS: Anion Gap 12.4 mEq/L (5-15); Calcium 9.1 mg/dl (8.4-10.2); Carbon Dioxide 21 mmol/L (22.0-30.0); Glucose 103 mg/dl (74-100); Phosphorous 3.7 mg/dl (2.5-4.5)
[2022-01-02 18:04] LABS: Squamous Epithelial Cell,Urine Occasional #/hpf (0-5); WBC,Urine Occasional #/hpf (0-3)
[2022-01-02 18:22] LABS: Hematocrit 35.6 % (42.0-52.0); Hemoglobin 11.6 g/dL (14.1-18.0); Mean Corpuscular HGB Conc 32.5 g/dL (31.8-35.4); Mean Corpuscular Hemoglobin 31.4 pg (27.0-31.2); Mean Corpuscular Volume 96.4 fl (80-94); Platelet Count 212 K/mm3 (142-424); Red Blood Count 3.69 M/mm3 (4.60-6.20); Red Cell Distribution Width 14.4 % (11.5-17.5); White Blood Count 5.7 K/mm3 (4.8-10.8)
== END ==
PROVIDERS: PCP Family Medicine; Visit Provider Internal Medicine Nephrology
DX: E87.5 Hyperkalemia (principal)
CPT/HCPCS: 80069; 81001; 82570; 84155; 85014; 85018; 85048; 85049

== ENCOUNTER → 2022-01-11 15:15 | Outpatient (POV) | payer OTHER, SELFPAY | PROVIDERS: Visit Provider Internal Medicine Nephrology | DX: Z00.00 Encounter for general adult medical examination without abnormal findings (principal) ==

== ENCOUNTER → 2022-06-19 11:45 | Outpatient (CLI) | payer BC, SELFPAY ==
[2022-06-19 12:10] LABS: Basophils # 0.1 K/mm3 (0-0.2); Basophils % 0.3 % (0.1-2.0); Eosinophils # 0.1 K/mm3 (0.0-0.4); Eosinophils % 0.9 % (0.1-12.0); Hematocrit 41.9 % (42.0-52.0); Hemoglobin 13.1 g/dL (14.1-18.0); Lymphocytes # 1.2 K/mm3 (0.7-4.5); Lymphocytes % 7.9 % (10-50); Mean Corpuscular HGB Conc 31.1 g/dL (31.8-35.4); Mean Corpuscular Hemoglobin 30.3 pg (27.0-31.2); Mean Corpuscular Volume 97.2 fl (80-94); Mean Platelet Volume 8.5 fl (7.4-10.4); Monocytes # 1.1 K/mm3 (0.1-1.0); Monocytes % 6.9 % (1.7-9.3); Neutrophils # 13.2 K/mm3 (1.8-7.8); Neutrophils % 83.9 % (37.0-80.0); Platelet Count 248 K/mm3 (142-424); Red Blood Count 4.31 M/mm3 (4.60-6.20); Red Cell Distribution Width 13.9 % (11.5-17.5); White Blood Count 15.7 K/mm3 (4.8-10.8)
[2022-06-19 12:13] LABS: MANUAL DIFFERENTIAL MANUAL DIFFERENTIAL (MANUAL DIFF)
[2022-06-19 12:55] LABS: Lymphocytes % 8 % (10-50); Monocytes % 7 % (2-9); Neutrophils % 85 % (42-76); Platelet Estimate Normal; RBC Morphology Normal; Total Cells Counted 100
== END ==
PROVIDERS: PCP Family Medicine; Visit Provider Family Medicine
DX: Z20.822 Contact with and (suspected) exposure to COVID-19 (principal)
CPT/HCPCS: 36415; 85007; 85025; C9803; U0003; U0005

== ENCOUNTER → 2022-07-02 10:08 | Outpatient (CLI) | payer BC, SELFPAY ==
--- NOTE | 2022-07-02 10:18 | XR_ITS ---
FINAL REPORT CLINICAL HISTORY: BACK PAIN FINDINGS: 5 views of the lumbar spine were obtained. There is no evidence of fracture or dislocation. The vertebral alignment is normal. There are mild degenerative changes with osteophytes. Mild vascular calcifications are noted. IMPRESSION: No acute bony abnormality. Reviewed, Interpreted and Dictated by Gurjit Gunter III, MD Transcribed by Silvia Cowart Authenticated and [facility]
== END ==
LOC: RAD 10:09
PROVIDERS: PCP Family Medicine; Visit Provider Nurse Practitioner Family
DX: M54.9 Dorsalgia, unspecified (principal); M54.50 Low back pain, unspecified
CPT/HCPCS: 72110

== ENCOUNTER → 2022-07-16 10:14 | Outpatient (CLI) | payer BC, SELFPAY ==
--- NOTE | 2022-07-16 10:19 | XR_ITS ---
FINAL REPORT CLINICAL HISTORY: HIP PAIN, ACUTE FINDINGS: LEFT HIP Two views of the left hip with an AP pelvis demonstrate no acute fracture or dislocation. The joint spaces appear normal. The visualized bony structures are well aligned. There are mild degenerative changes in the lower lumbar spine. No soft tissue abnormality is seen. IMPRESSION: Mild degenerative changes in the lower lumbar spine with no acute bony abnormality. Reviewed, Interpreted and Dictated by Gurjit Gunter III, MD Transcribed by Jocelyn Diaz Authenticated and [facility]
== END ==
PROVIDERS: PCP Family Medicine; Visit Provider Nurse Practitioner Family
DX: M25.552 Pain in left hip (principal)
CPT/HCPCS: 73502

== ENCOUNTER → 2022-07-18 10:24 | Outpatient (CLI) | payer BC, SELFPAY ==
[2022-07-18 10:30] LABS: Microscopic, Urine URINE MICROSCOPIC (MICROSCOPIC)
[2022-07-18 10:49] LABS: Appearance,Urine CLEAR (Clear); Bilirubin,Urine Negative (Negative); Blood, Urine Negative (Negative); Color,Urine YELLOW (Yellow); Glucose,Urine (UA) Negative (Negative); Ketones,Urine Negative (Negative); Leukocyte Esterase,Urine TRACE (Negative); Nitrate,Urine Negative (Negative); Protein,Urine Negative (Negative); Urobilinogen,Urine 0.2 EU/dl (0.2)
[2022-07-18 10:52] LABS: Hematocrit 39.3 % (42.0-52.0); Hemoglobin 12.4 g/dL (14.1-18.0); Mean Corpuscular HGB Conc 31.6 g/dL (31.8-35.4); Mean Corpuscular Hemoglobin 29.9 pg (27.0-31.2); Mean Corpuscular Volume 94.7 fl (80-94); Platelet Count 237 K/mm3 (142-424); Red Blood Count 4.15 M/mm3 (4.60-6.20); Red Cell Distribution Width 13.7 % (11.5-17.5); White Blood Count 8.6 K/mm3 (4.8-10.8)
[2022-07-18 11:01] LABS: Bacteria,Urine Trace /lpf; Creatinine,Urine Random 79 mg/dL (Not Estab.); WBC,Urine Occasional #/hpf (0-3)
[2022-07-18 11:24] LABS: Albumin Level 4.4 g/dl (3.5-5.0); Blood Urea Nitrogen 68 mg/dl (9-20); Calcium 9.6 mg/dl (8.4-10.2); Carbon Dioxide 22 mmol/L (22.0-30.0); Chloride 106 mmol/L (98-107); Estimated Glomerular Filt Rate 18 ml/min (>60); GFR (African American) 21 ML/MIN (>60); Glucose 100 mg/dl (74-100); Phosphorous 4.9 mg/dl (2.5-4.5); Sodium 138 mmol/L (136-145)
== END ==
PROVIDERS: PCP Family Medicine; Visit Provider Internal Medicine Nephrology
DX: N18.4 Chronic kidney disease, stage 4 (severe) (principal)
CPT/HCPCS: 36415; 80069; 81001; 82570; 84155; 85014; 85018; 85048; 85049

== ENCOUNTER → 2022-07-23 13:17 | Outpatient (POV) | payer BC, SELFPAY | PROVIDERS: Visit Provider Internal Medicine Nephrology | DX: Z00.00 Encounter for general adult medical examination without abnormal findings (principal) ==

== ENCOUNTER 2022-09-08 12:21 | Emergency (ER) | payer BC, SELFPAY ==
--- NOTE | 2022-09-08 12:56 | EXP.UTC ---
Discharge Plan Disposition Patient Disposition: Home, Self-Care Condition: Good Prescriptions Prescriptions: No Action lisinopril 40 mg tablet 40 mg PO DAILY Label Comments: TAKE 1 TABLET BY MOUTH NIGHTLY AT BEDTIME hydralazine 100 mg tablet 100 mg PO DAILY Label Comments: TAKE 1 TABLET BY MOUTH TWICE DAILY chlorthalidone 50 mg tablet 50 mg PO DAILY Label Comments: TAKE 1 TABLET BY MOUTH DAILY spironolactone 100 mg tablet 100 mg PO DAILY Label Comments: TAKE 1 TABLET BY MOUTH DAILY nifedipine 90 mg tablet extended release 90 each PO BID Label Comments: TAKE 1 TABLET BY MOUTH TWICE DAILY carvedilol 25 mg tablet 25 mg PO DAILY Label Comments: TAKE 1 TABLET BY MOUTH TWICE DAILY Referrals Follow up/Referrals: Ramsey Mcdermott MD [Primary Care Provider] - See instructions Activity Restrictions/Add. Instructions Additional Instructions/Restrictions: Take tylenol or ibuprofen for pain or fever. Follow up with your regular doctor. GO TO THE ER FOR ANY WORSENING SYMPTOMS Clinical Impressions Clinical Impression: Exposure to COVID-19 virus Stand Alone Forms Stand Alone Forms: Work/School Release Instructions Patient Instructions: Coronavirus Disease 2019, Preventing the Spread of Coronavirus Discharge Instructions Discharge ED Provider: Peter Sykes [facility] [place] H[place] General Stated complaint: exposure to covid Time Seen by Provider: 09/08/22 12:56 History of Present Illness Provider Complaint: He states that he has been exposed to covid-19 6 days ago. He went thru 5 days of quarantine. He denies any symptoms. He needs to be released to go back to work. Related Data Home Medications Medication Instructions Recorded Confirmed carvedilol 25 mg tablet 25 mg PO DAILY bp 01/16/21 04/21/21 chlorthalidone 50 mg tablet 50 mg PO DAILY bp 01/16/21 04/21/21 hydralazine 100 mg tablet 100 mg PO DAILY Fluid 01/16/21 04/21/21 lisinopril 40 mg tablet 40 mg PO DAILY bp 01/16/21 04/21/21 nifedipine 90 mg tablet,extended 90 each PO BID bp 01/16/21 04/21/21 release spironolactone 100 mg tablet 100 mg PO DAILY bp 01/16/21 04/21/21 Allergies Allergy/AdvReac Type Severity Reaction Status Date / Time No Known Allergies Allergy Verified 04/21/21 13:03 [facility] Disclaimer: The information contained in this section may have been updated after the patient was seen, as this information can be updated by other users. 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 current occupational exposures/hazards: No caffeine: Yes ROS Obtained: Yes All systems reviewed & no additional complaints except as documented Constitutional Constitutional: Denies chills and Denies fever(s) Eyes Eyes: Denies eye discharge ENT Ears, Nose, Mouth, and Throat: Denies dizziness, Denies otalgia and Denies sore throat Cardiovascular Cardiovascular: Denies chest pain Respiratory Respiratory: Denies shortness of breath, Denies chest congestion, Denies cough, Denies stridor and Denies wheezing Gastrointestinal Gastrointestingal: Denies nausea or vomiting Musculoskeletal Musculoskeletal: Reports system reviewed and no additional complaints, except as documented and Denies arthralgias Integumentary/Breasts Skin/Breast: Denies rash Neurologic Neurologic: Denies dizziness and Denies paresthesias Allergic/Immunologic Allergic/Immunologic: Denies wheezing Physical Exam General General appearance: alert and in no apparent distress Head Head exam: atraumatic, normocephalic and normal inspection Eye Eye exam: Present normal appearance, PERRL and EOMI ENT ENT exam: Presen
[2022-09-08 13:00] VITALS: BP 158/92; PULSE 90; RESP 20; TEMP 36.6; O2SAT 97; BMI 26.4
[2022-09-08 13:27] VITALS: BP 158/92; PULSE 90; RESP 20; TEMP 36.6; O2SAT 97
== END 2022-09-08 13:27 | disposition home or self-care (01) ==
PROVIDERS: Emergency Provider Nurse Practitioner Family; PCP Family Medicine
DX: Z20.822 Contact with and (suspected) exposure to COVID-19 (principal)
CPT/HCPCS: 99211; 99212; G0463

== ENCOUNTER 2022-10-31 11:00 | Outpatient (RCR) | payer BC, SELFPAY ==
--- NOTE | 2022-10-29 12:28 | HMH.PTOPEV ---
PT Outpatient Evaluation Rehab PT Outpatient Evaluation Start: 10/29/22 10:39 Freq: Status: Active Protocol: Document 10/29/22 10:39 JULIENNE (Rec: 10/29/22 12:27 JULIENNE [id number]) E-signed By Carolyne Stapleton, PT Outpatient Therapy Subjective History Subjective History Pt is a 57 y/o male who reports gradual onset of right hip pain in 2021 and right shoulder pain in August of 2022. 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 Pt reports tightness of the R upper trapezius with intermittent dull anterior shoulder pain. Pt denies true neck pain. Pt reports intermittent sharp pain from the neck down the arm with tingling of the right ring and middle fingers. Pt reports he was having difficulty holding bolts at work due to tingling of the right hand. Pt also reports noticed weakness of the right shoulder that has worsened since onset. Pt reports he is working on getting an EMG/NCV test scheduled ordered by Dr. Syed. Pt denies use of medication for shoulder pain. Pt reports he had a right shoulder and hip xray at [facility] without known findings, states he will bring the results to the next PT session . Pt reports right shoulder pain is aggravated by lifting and reaching forward. In regards to the hip, pt reports right lateral hip pain and at the rgeater trochanter described as sharp. Pt reports pain is worse in the mornings with stiffness requiring use of cane to perform initial sit to stand transfer of the day. Pt reports ti
== END 2022-10-31 11:05 | disposition home or self-care (01) ==
LOC: PT 11:00
PROVIDERS: PCP Family Medicine; Visit Provider Orthopaedic Surgery
DX: M25.511 Pain in right shoulder (principal); M25.551 Pain in right hip
CPT/HCPCS: 97033; 97110; 97163; 97530

== ENCOUNTER → 2023-03-11 09:56 | Outpatient (CLI) | payer BC, SELFPAY ==
--- NOTE | 2023-03-11 10:01 | XR_ITS ---
FINAL REPORT CLINICAL HISTORY: DISORDER OF NECK COMPARISON: None FINDINGS: CERVICAL SPINE 5 views were obtained. There is no acute fracture or malalignment. There is moderate to severe degenerative change with disc osteophyte complexes at C5-6 and C6-7. There is mild anterolisthesis of C4 on C5. There is severe right at 5 6 and moderate left L5-6 neuroforaminal narrowing. There is mild and moderate neuroforaminal narrowing at other levels. IMPRESSION: Moderate to severe degenerative changes without acute process. Reviewed, Interpreted and Dictated by Gurjit Gunter III, MD Transcribed by Joanna Castillo Authenticated and [facility]
== END ==
LOC: RAD 09:57
PROVIDERS: PCP Family Medicine; Visit Provider Family Medicine
DX: M53.82 Other specified dorsopathies, cervical region (principal); M54.12 Radiculopathy, cervical region
CPT/HCPCS: 72050

== ENCOUNTER → 2023-03-18 12:18 | Outpatient (CLI) | payer BC, SELFPAY ==
--- NOTE | 2023-03-18 | CA_ITS ---
APPROVED REPORT Exam: Exercise Treadmill Technologist: Misty Jacques, Ht: 6 ft 1 in Wt: 200 lbs BSA: 2.15 m2 HR: 68 bpm BP: 149/88 mmHg Rhythm: NSR Medical History Medications: Lisinopril,,,,, Hydralazine,,,,, Carvedilol,,,,, CHlorthalidone,,,,, SpirOnolactone,,,,, NifEDIPINE ER,,,,, Stress Test Details Test: Pernell HR Resting HR: 71 bpm Max Heart Rate (APMHR): 162 bpm Max HR Achieved: 120 bpm Target HR (85% APMHR): 138 bpm % of APMHR: 74 Recovery HR: 82 bpm HR response to stress: Blunted HR response to stress BP Resting BP: 148.0/90.0 mmHg Max BP: 184.0/83.0 mmHg Recovery BP: 149.0/85.0 mmHg BP response to stress: Normal blood pressure response to stress. ECG Resting ECG: Sinus rhythm, T wave changes in inferior leads Stress EC mm horizontal ST depression Arrhythmia: None Recovery ECG: Persistent minimal ST depression at 5 minutes of recovery Recovery Arrhythmia: None Clinical Exercise duration: 07:33 min Highest Stage Achieved: III Exercise capacity: 10.1 METs Overall Exercise Capacity for Age: Average Stress ECG Conclusion This was a suboptimal stress test due to inability to achieve target HR. The patient was able to walk for a total of 7 minutes, 33 seconds. He achieved a total of 10.1 METS. He has an average exercise capacity compared to age and sex matched peers. He has blunted HR, but normal BP, response to exercise. Max HR: 120 % of PM: 74 Max BP: 184/83 METs: 10.1 Test stopped due to: dyspnea Symptoms: leg fatigue, chest pressure/tightness, dyspnea ST-T Changes: 1mm horizontal ST depression Conclusion: Suboptimal stress test due to inability to achieve target HR. Average exercise capacity. Stress ECG suggestive of ischemia. Myoview images are reported separately. Test Summary REST . . . . . . . Sitting REST . . . . . . . Standing REST 02:37 0.0 0.0 71 . 148/ 90 . . Stage 1 01:00 10.0 1.7 88 . . . . Stage 1 02:00 10.0 1.7 95 . 138/ 82 . . Stage 1 03:00 10.0 1.7 101 . 138/ 82 . . Stage 2 01:00 12.0 2.5 106 . . . . Stage 2 02:00 12.0 2.5 110 . 158/ 88 . . Stage 2 03:00 12.0 2.5 114 . 158/ 88 . . Stage 3 . . . . . . . Myoview Injected Stage 3 01:00 14.0 3.4 118 . . . . Stage 3 01:33 14.0 3.4 119 . . . Stop exercise at 07:33 RECOVERY 01:00 0.0 0.0 106 . 160/ 82 . . RECOVERY 02:00 0.0 0.0 90 . 160/ 82 . . RECOVERY 03:00 0.0 0.0 86 . 161/ 81 . . RECOVERY 04:00 0.0 0.0 86 . 161/ 81 . . RECOVERY 05:00 0.0 0.0 80 . 184/ 83 . . RECOVERY 05:54 0.0 0.0 82 . 149/ 85 . . Electronically signed by : Malinda Rodriguez, 03/19/2023 18:30:45
--- NOTE | 2023-03-18 12:29 | NM_ITS ---
APPROVED REPORT Exam: Nuclear Stress Test Indication: CHEST PAIN..SHORT OF BREATH..SYNCOPE.FATIGUE Patient Location: Outpatient Stress Tech: Misty Overton [place] Tech:SHAISTA Allen RT (R)(N)(M) Ht: 6 ft 1 in Wt: 207 lbs HR: 71 bpm BP: 148/90 mmHg BSA: 2.18 m2 TID: 1.00 BMI: 27.3 History: CHEST PAIN..SHORT OF BREATH..SYNCOPE.FATIGUE Procedure: Patient exercised on Pernell protocol 7:33 minutes and sec, resting heart rate 71 bpm, resting blood pressure 148/90 mmHg, with exercise maximum heart rate achived was 120 bpm which is 74 % of the maximum predicted heart rate and blood pressure was 184/83 mmHg. Patient has Average exercise capacity, achieved 10.1 METs of workload on treadmill, the blood pressure response to exercise was Normal. Cardiac Stress and Resting SPECT Images: Cardiac Stress and Resting SPECT images were obtained using technetium 99m Myoview 32.1 mCi stress and 10.37 mCi at rest. Suboptimal stress test due to inability to achieve target HR. Resting and stress perfusion imaging in supine and prone positions demonstrate medium sized, mild, partially reversible perfusion defect in the basal to mid inferior LV wall. Gated imaging demonstrates mild reduction in global LV systolic function. There is moderate hypokinesis of the basal inferior LV wall. LVEF is calculated at 49%. Conclusion: Suboptimal stress test due to inability to achieve target HR. Resting and stress perfusion imaging in supine and prone positions demonstrate a medium sized, mild, partially reversible perfusion defect in the basal to mid inferior LV wall. Findings are suggestive of partial reversible ischemia. Gated imaging demonstrates mild reduction in global LV systolic function. There is moderate hypokinesis of the basal inferior LV wall. LVEF is calculated at 49%. Electronically signed by : Malinda Rodriguez, 03/19/2023 18:34:09
== END ==
PROVIDERS: PCP Family Medicine; Visit Provider Family Medicine
DX: R07.89 Other chest pain (principal)
CPT/HCPCS: 78452; 93017; A9502

== ENCOUNTER 2023-04-05 07:08 | Day surgery (SDC) | payer BC, SELFPAY ==
[2023-04-05] VITALS (12 sets, daily range): BP systolic 92–139; BP diastolic 58–88; PULSE 61–78; RESP 13–17; O2SAT 95–98; BMI 27.3
--- NOTE | 2023-04-05 07:16 | IR_ITS ---
APPROVED REPORT Patient Location: Outpatient Forder Operator: SHAISTA Robbins RT (R) PROCEDURES Left heart catheterization Selective coronary angiogram INDICATION Abnormal Myoview, Angina pectoris Informed consent was obtained prior to the procedure. COMPLICATIONS None Estimated Blood Loss: Less than10 mls TECHNIQUE One percent lidocaine used to anesthetize the right anterior aspect of the wrist. The right radial artery was accessed via the Seldinger technique. A 6 Malay sheath was placed in the right radial artery. 2.5 mg of Verapamil, 800 mcg of nitroglycerin, 1mg Lidocaine and 5000 U Heparin were given through the arterial sheath. The papa catheter was also used to perform left heart catheterization,and selective coronary angiogram. At the end of the procedure the sheath was removed good hemostasis was achieved using Traclet band, patient was transferred to the postop holding area in stable condition. ANGIOGRAPHIC RESULTS The left main artery Normal The left anterior descending artery Large caliber with mild proximal 10% luminal irregularities The circumflex artery Dominant and normal The right coronary artery Nondominant and widely patent The ABDI ventriculogram reveals Not performed The left ventricular end-diastolic pressure 15 mmHg IMPRESSION Mild nonflow limiting coronary artery disease PLAN 1. Medical management for cardiomyopathy Electronically signed by : Galen Carrasco MD 04/05/2023 09:03:52
[2023-04-05 07:55] LABS: Chloride 109 mmol/L (98-107); Potassium 5.5 mmoL/L (3.5-5.1); Sodium 137 mmol/L (136-145)
[2023-04-05 07:58] LABS: Blood Urea Nitrogen 61 mg/dl (9-20); Creatinine Clearance Estimated 29 mL/min (50-200); Estimated Glomerular Filt Rate 18 ml/min (>60); GFR (African American) 21 ML/MIN (>60)
[2023-04-05 07:59] LABS: Anion Gap 18.5 mEq/L (5-15); Basophils % 0.5 % (0.1-2.0); Calcium 9.6 mg/dl (8.4-10.2); Carbon Dioxide 15 mmol/L (22.0-30.0); Eosinophils # 0.4 K/mm3 (0.0-0.4); Eosinophils % 5.1 % (0.1-12.0); Glucose 101 mg/dl (74-100); Hematocrit 39.5 % (42.0-52.0); Lymphocytes # 1.6 K/mm3 (0.7-4.5); Lymphocytes % 22.7 % (10-50); Mean Corpuscular Hemoglobin 31.4 pg (27.0-31.2); Mean Corpuscular Volume 95.1 fl (80-94); Mean Platelet Volume 7.5 fl (7.4-10.4); Monocytes # 0.6 K/mm3 (0.1-1.0); Monocytes % 7.9 % (1.7-9.3); Neutrophils # 4.6 K/mm3 (1.8-7.8); Neutrophils % 63.8 % (37.0-80.0); Platelet Count 228 K/mm3 (142-424); Red Blood Count 4.15 M/mm3 (4.60-6.20); Red Cell Distribution Width 13.4 % (11.5-17.5); White Blood Count 7.2 K/mm3 (4.8-10.8)
== END 2023-04-05 12:05 | disposition home or self-care (01) ==
PROVIDERS: PCP Family Medicine; Visit Provider Internal Medicine
DX: I25.118 Atherosclerotic heart disease of native coronary artery with other forms of angina pectoris (principal); K21.9 Gastro-esophageal reflux disease without esophagitis; R12 Heartburn; R94.30 Abnormal result of cardiovascular function study, unspecified; R94.31 Abnormal electrocardiogram [ECG] [EKG]; Z79.899 Other long term (current) drug therapy
CPT/HCPCS: 80048; 85025; 93454; 99152; C1725; C1769; J1644; Q9967

== ENCOUNTER → 2023-05-11 08:14 | Outpatient (CLI) | payer BC, SELFPAY ==
[2023-05-11 08:32] LABS: Microscopic, Urine URINE MICROSCOPIC (MICROSCOPIC)
[2023-05-11 09:45] LABS: Hematocrit 39.1 % (42.0-52.0); Hemoglobin 12.2 g/dL (14.1-18.0); Mean Corpuscular HGB Conc 31.2 g/dL (31.8-35.4); Mean Corpuscular Hemoglobin 30.7 pg (27.0-31.2); Mean Corpuscular Volume 98.2 fl (80-94); Platelet Count 195 K/mm3 (142-424); Red Blood Count 3.98 M/mm3 (4.60-6.20); Red Cell Distribution Width 14.4 % (11.5-17.5); White Blood Count 5.3 K/mm3 (4.8-10.8)
[2023-05-11 09:51] LABS: Albumin Level 3.9 g/dl (3.5-5.0); Anion Gap 12.9 mEq/L (5-15); Blood Urea Nitrogen 30 mg/dl (9-20); Carbon Dioxide 24 mmol/L (22.0-30.0); Chloride 108 mmol/L (98-107); Estimated Glomerular Filt Rate 27 ml/min (>60); GFR (African American) 32 ML/MIN (>60); Glucose 91 mg/dl (74-100); Phosphorous 3.6 mg/dl (2.5-4.5); Potassium 4.9 mmoL/L (3.5-5.1); Sodium 140 mmol/L (136-145)
[2023-05-11 10:00] LABS: Intact Parathyroid Hormone 121.1 pg/mL (7.5-53.5)
[2023-05-11 10:04] LABS: 25-OH Vitamin D, Total 33.2 ng/mL (30-100)
[2023-05-11 10:19] LABS: Appearance,Urine CLEAR (Clear); Bilirubin,Urine Negative (Negative); Blood, Urine Negative (Negative); Color,Urine YELLOW (Yellow); Glucose,Urine (UA) Negative (Negative); Ketones,Urine Negative (Negative); Leukocyte Esterase,Urine Negative (Negative); Nitrate,Urine Negative (Negative); Protein,Urine Negative (Negative); Specific Gravity, Urine 1.025 (1.005-1.030); Urobilinogen,Urine 0.2 EU/dl (0.2)
[2023-05-11 10:32] LABS: Creatinine,Urine Random 136 mg/dL (Not Estab.)
[2023-05-11 10:34] LABS: Squamous Epithelial Cell,Urine Occasional #/hpf (0-5)
== END ==
LOC: LAB 08:15
PROVIDERS: PCP Family Medicine; Visit Provider Internal Medicine Nephrology
DX: N18.4 Chronic kidney disease, stage 4 (severe) (principal)
CPT/HCPCS: 36415; 80069; 81001; 82306; 82570; 83970; 84155; 85014; 85018; 85048; 85049

== ENCOUNTER 2023-10-09 09:59 | Outpatient (CLI) | payer BC, SELFPAY ==
[2023-10-09 10:06] LABS: Microscopic, Urine URINE MICROSCOPIC (MICROSCOPIC)
[2023-10-09 10:28] LABS: Hematocrit 35.1 % (42.0-52.0); Hemoglobin 11.1 g/dL (14.1-18.0); Mean Corpuscular HGB Conc 31.7 g/dL (31.8-35.4); Mean Corpuscular Hemoglobin 31.8 pg (27.0-31.2); Mean Corpuscular Volume 100.2 fl (80-94); Platelet Count 244 K/mm3 (142-424); Red Cell Distribution Width 13.8 % (11.5-17.5); White Blood Count 6.6 K/mm3 (4.8-10.8)
[2023-10-09 10:59] LABS: Appearance,Urine CLEAR (Clear); Bilirubin,Urine Negative (Negative); Blood, Urine Negative (Negative); Color,Urine YELLOW (Yellow); Glucose,Urine (UA) Negative (Negative); Ketones,Urine Negative (Negative); Leukocyte Esterase,Urine Negative (Negative); Nitrate,Urine Negative (Negative); Protein,Urine Negative (Negative); Urobilinogen,Urine 0.2 EU/dl (0.2)
[2023-10-09 11:07] LABS: Chloride 110 mmol/L (98-107); Sodium 137 mmol/L (136-145)
[2023-10-09 11:10] LABS: Blood Urea Nitrogen 50 mg/dl (9-20); Carbon Dioxide 20 mmol/L (22.0-30.0); Estimated Glomerular Filt Rate 19 ml/min (>60); GFR (African American) 23 ML/MIN (>60)
[2023-10-09 11:11] LABS: Calcium 9.3 mg/dl (8.4-10.2); Glucose 97 mg/dl (74-100); Phosphorous 4.8 mg/dl (2.5-4.5)
[2023-10-09 11:56] LABS: Creatinine,Urine Random 74 mg/dL (Not Estab.)
[2023-10-09 12:08] LABS: Squamous Epithelial Cell,Urine Occasional #/hpf (0-5); WBC,Urine Occasional #/hpf (0-3)
== END 2023-10-09 23:59 ==
LOC: LAB 10:03
PROVIDERS: PCP Family Medicine; Visit Provider Internal Medicine Nephrology
DX: N18.4 Chronic kidney disease, stage 4 (severe) (principal)
CPT/HCPCS: 36415; 80069; 81001; 82570; 84155; 85014; 85018; 85048; 85049

== ENCOUNTER 2023-10-12 08:43 | Outpatient (CLI) | payer BC, SELFPAY ==
[2023-10-12 10:00] LABS: Anion Gap 14.5 mEq/L (5-15); Blood Urea Nitrogen 45 mg/dl (9-20); Calcium 8.8 mg/dl (8.4-10.2); Carbon Dioxide 19 mmol/L (22.0-30.0); Chloride 110 mmol/L (98-107); Estimated Glomerular Filt Rate 22 ml/min (>60); GFR (African American) 27 ML/MIN (>60); Glucose 92 mg/dl (74-100); Phosphorous 4.7 mg/dl (2.5-4.5); Potassium 5.5 mmoL/L (3.5-5.1); Sodium 138 mmol/L (136-145)
== END 2023-10-12 23:59 ==
LOC: LAB 08:45
PROVIDERS: PCP Family Medicine; Visit Provider Internal Medicine Nephrology
DX: N18.4 Chronic kidney disease, stage 4 (severe) (principal)
CPT/HCPCS: 36415; 80069

== ENCOUNTER 2023-10-17 16:08 | Outpatient (POV) | payer BC, SELFPAY | END 2023-10-17 23:59 | disposition home or self-care (01) | LOC: SC 16:09 | PROVIDERS: Visit Provider Internal Medicine Nephrology | DX: Z00.00 Encounter for general adult medical examination without abnormal findings (principal) ==

== ENCOUNTER 2023-11-08 07:39 | Outpatient (CLI) | payer BC, SELFPAY ==
--- NOTE | 2023-11-08 07:45 | CA_ITS ---
APPROVED REPORT EXAM: Comprehensive 2D, Doppler, and color-flow Echocardiogram Spread Cutter: Darling Noble, RCS, RVS Ht: 6 ft 0 in Wt: 204lbs BSA: 2.15 BP: 144/108 mmHg Indications: SOA, Lt arm numbness, Abn EKG, CKD stge IV, Family HX-HD 2D Dimensions LVDd 4.13 cm Left Atrium 3.10 cm M-Mode Dimensions RVDd 2.95 cm (0.9-2.6) LA Diam 3.80 cm (1.9-4.0) LVDd 4.84 cm (3.5-5.7) LVDs 3.38 cm (3.5-5.7) IVSd 1.00 cm (0.6-1.1) PWd 1.07 cm (0.6-1.1) EF (Teich) 57.30% EPSs 0.50 cm FS 30.20% EDV (Teich) 109.60 mL TAPSE 2.38 (<1.7) ESV (Teich) 46.80 mL LV Diastology E Decel Time 200 (160-240 msec) E/A Ratio 1.01 MED A' 9.10 cm/s LAT A' 13.30 cm/s Aortic Valve ZACK Index 1.32 cm2/m2 AoV Peak Pablo. 146.0 (50-130 cm/s) AI PHT 580.00 ms AO Peak GR. 8.50 mmHg AO Mean GR. 4.20 (<5 mmHg) AO VTI 30.1 (18-25 cm) ZACK (VTI) 2.91 (2.5-4.5 cm2) Mitral Valve MV A Velocity 71.0 (40-130 cm/s) E/A Ratio 1.01 Pulmonary Valve PV Peak Velocity 85.0 (50-150 cm/s) Tricuspid Valve TR P. Velocity 158.00 cm/s RAP Estimate 10.00 mmHg RVSP 20.00 mmHg Left Ventricle The left ventricle is normal size. The left ventricular systolic function is normal. The left ventricular ejection fraction is within the normal range. Proximal septal thickening is noted. There is normal LV segmental wall motion. The left ventricular diastolic function is normal. LVEF is 55%. Right Ventricle The right ventricle is normal size. The right ventricular systolic function is normal. Atria The left atrium size is normal. The right atrium size is normal. There is no Doppler evidence of interatrial shunt. Aortic Valve The aortic valve opens well. Mild aortic regurgitation. There is no aortic valvular stenosis. Mitral Valve The mitral valve is normal in structure. No evidence of mitral valve stenosis. There is no mitral valve regurgitation noted. Tricuspid Valve The tricuspid valve leaflets are thin and pliable. Trace tricuspid regurgitation. There is insufficient TR jet to estimate RVSP. Pulmonic Valve The pulmonary valve is normal in structure. Trace pulmonic regurgitation. Great Vessels The aortic root is normal in size. The ascending aorta is normal in size. The IVC is not well-visualized. Pericardium There is no pericardial effusion. Other Information Study Quality: Fair Conclusion Normal biventricular systolic function. Mild AI. Electronically signed by : Malinda Rodriguez MD 11/11/2023 09:31:10
== END 2023-11-08 23:59 ==
LOC: RT 07:40
PROVIDERS: PCP Family Medicine; Visit Provider Internal Medicine Nephrology
DX: R94.31 Abnormal electrocardiogram [ECG] [EKG]; R94.30 Abnormal result of cardiovascular function study, unspecified; N18.4 Chronic kidney disease, stage 4 (severe); I20.89 Other forms of angina pectoris
CPT/HCPCS: 93306

== ENCOUNTER 2024-05-20 07:52 | Outpatient (CLI) | payer BC, SELFPAY ==
[2024-05-20 08:00] LABS: Microscopic, Urine URINE MICROSCOPIC (MICROSCOPIC)
[2024-05-20 08:14] LABS: Hemoglobin 13.3 g/dL (14.1-18.0); Mean Corpuscular HGB Conc 33.2 g/dL (31.8-35.4); Mean Corpuscular Hemoglobin 31.1 pg (27.0-31.2); Mean Corpuscular Volume 93.5 fl (80-94); Platelet Count 179 K/mm3 (142-424); Red Blood Count 4.28 M/mm3 (4.60-6.20)
[2024-05-20 08:57] LABS: Albumin Level 4.4 g/dl (3.5-5.0); Chloride 107 mmol/L (98-107); Potassium 5.8 mmoL/L (3.5-5.1); Sodium 137 mmol/L (136-145)
[2024-05-20 09:00] LABS: Anion Gap 16.8 mEq/L (5-15); Blood Urea Nitrogen 61 mg/dl (9-20); Carbon Dioxide 19 mmol/L (22.0-30.0); Estimated Glomerular Filt Rate 19 ml/min (>60); GFR (African American) 22 ML/MIN (>60)
[2024-05-20 09:01] LABS: Calcium 9.4 mg/dl (8.4-10.2); Glucose 83 mg/dl (74-100); Phosphorous 3.5 mg/dl (2.5-4.5)
[2024-05-20 09:28] LABS: Appearance,Urine CLEAR (Clear); Bilirubin,Urine Negative (Negative); Blood, Urine Negative (Negative); Color,Urine YELLOW (Yellow); Glucose,Urine (UA) Negative (Negative); Ketones,Urine Negative (Negative); Leukocyte Esterase,Urine Negative (Negative); Nitrate,Urine Negative (Negative); Protein,Urine Negative (Negative); Specific Gravity, Urine 1.025 (1.005-1.030); Urobilinogen,Urine 0.2 EU/dl (0.2)
[2024-05-20 09:40] LABS: Creatinine,Urine Random 158 mg/dL (Not Estab.)
[2024-05-20 09:46] LABS: RBC,Urine Occasional #/hpf (0-3)
== END 2024-05-20 23:59 | disposition home or self-care (01) ==
LOC: LAB 07:55
PROVIDERS: PCP Family Medicine; Visit Provider Internal Medicine Nephrology
DX: N18.4 Chronic kidney disease, stage 4 (severe) (principal)
CPT/HCPCS: 36415; 80069; 81001; 82570; 84156; 85027

== ENCOUNTER 2024-05-29 10:17 | Outpatient (CLI) | payer BC, SELFPAY ==
[2024-05-29 11:21] LABS: Albumin Level 3.9 g/dl (3.5-5.0); Anion Gap 14.1 mEq/L (5-15); Blood Urea Nitrogen 60 mg/dl (9-20); Calcium 8.6 mg/dl (8.4-10.2); Carbon Dioxide 19 mmol/L (22.0-30.0); Chloride 112 mmol/L (98-107); Estimated Glomerular Filt Rate 19 ml/min (>60); GFR (African American) 22 ML/MIN (>60); Glucose 91 mg/dl (74-100); Phosphorous 5.4 mg/dl (2.5-4.5); Potassium 5.1 mmoL/L (3.5-5.1); Sodium 140 mmol/L (136-145)
== END 2024-05-29 23:59 | disposition home or self-care (01) ==
LOC: LAB 10:20
PROVIDERS: PCP Family Medicine; Visit Provider Student in an Organized Health Care Education/Training Program
DX: E87.5 Hyperkalemia (principal)
CPT/HCPCS: 36415; 80069

== ENCOUNTER 2024-05-29 13:45 | Outpatient (POV) | payer BC, SELFPAY | END 2024-05-29 23:59 | disposition home or self-care (01) | LOC: SC 13:45 | PROVIDERS: Visit Provider Student in an Organized Health Care Education/Training Program | DX: Z00.00 Encounter for general adult medical examination without abnormal findings (principal) ==

== ENCOUNTER 2024-08-21 07:56 | Outpatient (CLI) | payer BC, SELFPAY ==
[2024-08-21 08:03] LABS: Microscopic, Urine URINE MICROSCOPIC (MICROSCOPIC)
[2024-08-21 08:23] LABS: Hematocrit 38.3 % (42.0-52.0); Hemoglobin 12.5 g/dL (14.1-18.0); Mean Corpuscular HGB Conc 32.6 g/dL (31.8-35.4); Mean Corpuscular Hemoglobin 30.9 pg (27.0-31.2); Mean Corpuscular Volume 94.8 fl (80-94); Platelet Count 202 K/mm3 (142-424); Red Blood Count 4.04 M/mm3 (4.60-6.20); Red Cell Distribution Width 13.2 % (11.5-17.5); White Blood Count 6.5 K/mm3 (4.8-10.8)
[2024-08-21 08:25] LABS: Appearance,Urine CLEAR (Clear); Bilirubin,Urine Negative (Negative); Blood, Urine Negative (Negative); Color,Urine YELLOW (Yellow); Glucose,Urine (UA) Negative (Negative); Ketones,Urine Negative (Negative); Leukocyte Esterase,Urine Negative (Negative); Nitrate,Urine Negative (Negative); Protein,Urine Negative (Negative); Urobilinogen,Urine 0.2 EU/dl (0.2)
[2024-08-21 08:31] LABS: Creatinine,Urine Random 102 mg/dL (Not Estab.)
[2024-08-21 08:47] LABS: Albumin Level 4.2 g/dl (3.5-5.0); Anion Gap 13.7 mEq/L (5-15); Blood Urea Nitrogen 46 mg/dl (9-20); Calcium 8.9 mg/dl (8.4-10.2); Carbon Dioxide 22 mmol/L (22.0-30.0); Chloride 107 mmol/L (98-107); Estimated Glomerular Filt Rate 21 ml/min (>60); GFR (African American) 26 ML/MIN (>60); Glucose 85 mg/dl (74-100); Phosphorous 4.4 mg/dl (2.5-4.5); Potassium 4.7 mmoL/L (3.5-5.1); Sodium 138 mmol/L (136-145)
[2024-08-21 09:01] LABS: Intact Parathyroid Hormone 269.3 pg/mL (7.5-53.5)
[2024-08-21 09:04] LABS: 25-OH Vitamin D, Total 28.7 ng/mL (30-100)
== END 2024-08-21 23:59 | disposition home or self-care (01) ==
LOC: LAB 07:58
PROVIDERS: PCP Family Medicine; Visit Provider Student in an Organized Health Care Education/Training Program
DX: N18.4 Chronic kidney disease, stage 4 (severe) (principal); D63.1 Anemia in chronic kidney disease
CPT/HCPCS: 36415; 80069; 81001; 82306; 82570; 83970; 84156; 85027

== ENCOUNTER 2024-11-10 11:36 | Outpatient (CLI) | payer BC, SELFPAY ==
--- NOTE | 2024-11-10 11:41 | CA_ITS ---
FINAL REPORT TECHNIQUE: Ultrasound images of the deep venous system were obtained from the left groin to the calf veins. CLINICAL HISTORY: Left thigh pain FINDINGS: The deep venous system is normally compressible. Normal flow is identified. IMPRESSION: No evidence of left lower extremity DVT. Reviewed, Interpreted and Dictated by Eugene Meraz MD Transcribed by Silvia Cowart Authenticated and [facility]
== END 2024-11-10 23:59 | disposition home or self-care (01) ==
LOC: RT 11:38
PROVIDERS: PCP Family Medicine; Visit Provider Nurse Practitioner Family
DX: M79.652 Pain in left thigh (principal)
CPT/HCPCS: 93971

== ENCOUNTER 2024-11-24 07:58 | Outpatient (CLI) | payer BC, SELFPAY ==
[2024-11-24 08:06] LABS: Microscopic, Urine URINE MICROSCOPIC (MICROSCOPIC)
[2024-11-24 08:25] LABS: Hematocrit 38.7 % (42.0-52.0); Hemoglobin 12.3 g/dL (14.1-18.0); Mean Corpuscular HGB Conc 31.8 g/dL (31.8-35.4); Mean Corpuscular Hemoglobin 29.6 pg (27.0-31.2); Mean Corpuscular Volume 93.3 fl (80-94); Nucleated Red Blood Cells # 0 10^3/uL; Nucleated Red Blood Cells % 0 %; Platelet Count 235 K/mm3 (142-424); Red Blood Count 4.15 M/mm3 (4.60-6.20); Red Cell Distribution Width 14.2 % (11.5-17.5); Red Cell Distribution Width-SD 48.4 fL
[2024-11-24 08:42] LABS: Appearance,Urine CLEAR (Clear); Bilirubin,Urine Negative (Negative); Blood, Urine Negative (Negative); Color,Urine YELLOW (Yellow); Glucose,Urine (UA) Negative (Negative); Ketones,Urine Negative (Negative); Leukocyte Esterase,Urine Negative (Negative); Nitrate,Urine Negative (Negative); PH,Urine 5.5 (5.0-8.5); Protein,Urine Negative (Negative); Specific Gravity, Urine 1.025 (1.005-1.030); Urobilinogen,Urine 0.2 EU/dl (0.2)
[2024-11-24 08:55] LABS: Chloride 106 mmol/L (98-107)
[2024-11-24 08:56] LABS: Albumin Level 4.1 g/dl (3.5-5.0); Potassium 5.9 mmoL/L (3.5-5.1); Sodium 134 mmol/L (136-145)
[2024-11-24 08:58] LABS: Blood Urea Nitrogen 66 mg/dl (9-20)
[2024-11-24 08:59] LABS: Anion Gap 17.9 mEq/L (5-15); Calcium 8.6 mg/dl (8.4-10.2); Carbon Dioxide 16 mmol/L (22.0-30.0); Estimated Glomerular Filt Rate 14 ml/min (>60); GFR (African American) 17 ML/MIN (>60); Glucose 89 mg/dl (74-100); Phosphorous 3.8 mg/dl (2.5-4.5)
[2024-11-24 09:06] LABS: Creatinine,Urine Random 155 mg/dL (Not Estab.)
[2024-11-24 09:09] LABS: Squamous Epithelial Cell,Urine Occasional #/hpf (0-5); WBC,Urine Occasional #/hpf (0-3)
--- NOTE | 2024-11-24 10:18 | ECG_ITS ---
APPROVED REPORT Exam: Resting ECG HR:87 bpm ECG Measurements Heart Rate 87 AXES SD 169 P 43 QRSd 108 QRS -24 QT 346 T 66 QTc 390 Conclusion SINUS RHYTHM BORDERLINE LEFT AXIS DEVIATION [QRS AXIS < -20] BORDERLINE ECG UNCONFIRMED REPORT Electronically signed by : Inocencio Reece MD 11/25/2024 08:02:30
== END 2024-11-24 23:59 | disposition home or self-care (01) ==
PROVIDERS: PCP Family Medicine; Visit Provider Student in an Organized Health Care Education/Training Program
DX: I12.9 Hypertensive chronic kidney disease with stage 1 through stage 4 chronic kidney disease, or unspecified chronic kidney disease (principal); N18.4 Chronic kidney disease, stage 4 (severe)
CPT/HCPCS: 36415; 80069; 81001; 82570; 84156; 85027; 93005

== ENCOUNTER 2024-11-24 10:07 | Emergency (ER) | payer BC, SELFPAY ==
--- NOTE | 2024-11-24 10:13 | ED_ITS ---
Discharge Plan Disposition Patient Disposition: Home, Self-Care Condition: Fair Prescriptions Prescriptions: No Action lisinopril 40 mg tablet 40 mg PO DAILY Patient Comments: TAKE 1 TABLET BY MOUTH NIGHTLY AT BEDTIME hydralazine 100 mg tablet 100 mg PO DAILY Patient Comments: TAKE 1 TABLET BY MOUTH TWICE DAILY chlorthalidone 50 mg tablet 50 mg PO DAILY Patient Comments: TAKE 1 TABLET BY MOUTH DAILY spironolactone 100 mg tablet 100 mg PO DAILY Patient Comments: TAKE 1 TABLET BY MOUTH DAILY nifedipine 90 mg tablet extended release 90 each PO BID Patient Comments: TAKE 1 TABLET BY MOUTH TWICE DAILY carvedilol 25 mg tablet 25 mg PO DAILY Patient Comments: TAKE 1 TABLET BY MOUTH TWICE DAILY Referrals Follow up/Referrals: Ramsey Mcdermott MD [Primary Care Provider] - See instructions Activity Restrictions/Add. Instructions Additional Instructions/Restrictions: Please go to the [facility] emergency department for Dr. Cassandra White Clinical Impressions Clinical Impression: Hyperkalemia Acute on chronic renal failure Qualifiers: Acute renal failure type: unspecified Chronic kidney disease stage: stage 4 (GFR 15-29) Qualified Code(s): N17.9 - Acute kidney failure, unspecified Stand Alone Forms Stand Alone Forms: Transfer Record - ED Print Language Print Language: Urugu[place] Discharge ED Provider: Rajeev Felipe General Adult HPI <ADY Villasenor - Last Filed: 11/24/24 11:02> General Chief complaint: Recheck/Abnormal Lab/Rx Stated complaint: Potassium levels high Time Seen by Provider: 11/24/24 10:12 History of Present Illness HPI narrative: Patient presents for evaluation of abnormal lab results. Patient has longstanding stage IV kidney disease not on chronic dialysis. He had routine lab work done this morning preparation his appointment on Saturday. He was called by nephrology clinic and told to come to the ER for evaluation. It is noted that he had worsening renal function and hyperkalemia. Patient denies any chest pain shortness of breath fever chills hemoptysis hematochezia melena nausea vomit diarrhea but does endorse that he has been having significant leg cramps. Only recent change in patient's history is approximately 2 weeks ago he was started on Bactrim for a dermatitis by his PCP. Related Data Home Medications ?Medication ?Instructions ?Recorded ?Confirmed carvedilol 25 mg tablet 25 mg PO DAILY bp 01/16/21 04/18/23 chlorthalidone 50 mg tablet 50 mg PO DAILY bp 01/16/21 04/18/23 hydralazine 100 mg tablet 100 mg PO DAILY Fluid 01/16/21 04/18/23 lisinopril 40 mg tablet 40 mg PO DAILY bp 01/16/21 04/18/23 nifedipine 90 mg tablet,extended 90 each PO BID bp 01/16/21 04/18/23 release spironolactone 100 mg tablet 100 mg PO DAILY bp 01/16/21 04/18/23 Allergies Allergy/AdvReac Type Severity Reaction Status Date / Time No Known Allergies Allergy Verified 04/18/23 13:09 [facility] <ADY Villasenor - Last Filed: 11/24/24 11:02> [facility] Disclaimer: The information contained in this section may have been updated after the patient was seen, as this information can be updated by other users. 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 current occupational exposures/hazards: No caffeine: Yes Have you lived/traveled outside [place] in past 30 days?: No Contact w/someone who lives/traveled outside US past 30 days?: No Exposure to someone with infectious disease in past 14 days?: No Do you have a fever (greater than 100.4 F or 38 C)?: No Have you tested positive for COVID-19: No Exposed to someone with COVID-19 in past 14 days?: No Do you have a sore throat?: No Do you have a cough?: No Do you have any weakness?: No Do you have any diarrhea?: No Are you experiencing any unusual bleeding?: No Do you have any muscle aches/pain?: No Do you have any abdominal pain?: No Are you experiencing loss of taste or smell?: No Other Medical History Have you received the Flu Vaccine for this season: Yes Have you received the Pneumonia Vaccine: No <ADY Villasenor - Last Filed: 11/24/24 11:02> ROS Obtained: Yes Systems reviewed as appropriate & no additional complaints except as documented Physical Exam <ADY Villasenor - Last Filed: 11/24/24 11:02> General General appearance: alert and in no apparent distress Respiratory Respiratory exam: Present normal lung sounds bilaterally Cardiovascular Cardiovascular exam: Present regular rate Neurological Exam Neurological exam: Present alert and oriented X3 Medical Decision Making <ADY Villasenor - Last Filed: 11/24/24 11:02> Medical Records Medical records reviewed: Yes I reviewed the patient's medical records. Screening: Per USPSTF and CDC recommendations, given the prevalence of disease in our region, it is our hospital?s policy to screen for HIV and viral Hepatitis for all patients aged 18 and over and those with ongoing risk factors. Bryan Inquiry Pt receiving controlled substance: No Vital Signs: 11/24/24 10:17 11/24/24 10:59 Temperature 98.2 F 98.2 F Temperature Source Oral Pulse Rate 89 Pulse Rate [Left Radial] 92 H Respiratory Rate 20 20 Blood Pressure 145/85 H Blood Pressure [Right Arm] 143/94 H Blood Pressure Mean [Right Arm] 110 02 Sat by Pulse Oximetry 97 Oxygen Delivery Method Room Air Room Air Lab Data Lab results reviewed: Yes I reviewed the patient's lab results. Orders (Tests/Meds): ED MEDICATIONS Discontinued Medications Generic Name Dose Route Start Last Admin Trade Name Freq PRN Reason Stop Dose Admin Sodium Zirconium Cyclosilicate 10 gm 11/24/24 10:16 11/24/24 10:25 Lokelma 5gm Packet PO 11/24/24 10:17 10 gm ONCE ONE Administration Medical Decision Narrative: In summary patient is a 59-year-old male who presents to the emergency department for evaluation of acute on chronic renal failure and hyperkalemia. Patient is hemodynamically stable with a blood pressure 143/94 heart rate 92 with normal sinus rhythm on the bedside monitor breathing 20 times a minute satting at 97% room air upon arrival, afebrile at 98.2. Physical exam does reveal scattered excoriated areas over his body that are in very stages of healing consistent with his diagnosis of dermatitis in the past 3 weeks. Presents clinical bilateral to the base with adventitious sounds as heart rates S1-S2 regular rate and rhythm without murmurs gallops or thrills or dependent edema noted. Abdomen soft nontender no rebound guarding or rigidity.. Differential diagnosis includes acute on chronic renal failure versus hyperkalemia versus other electrolyte abnormalities versus iatrogenic kidney injury etc. Initial workup was done already today with his initial lab work and additional lab testing was considered however that was deferred and lieu of consultation with nephrology prior to implementing. Initial interventions include Lokelma based on his potassium today of 5.9. I considered additional measures including IV fluids calcium gluconate normal saline insulin and D50 however I deferred until consultation with nephrology. Initial workup reviewed by me does show hyponatremia of 134 hypokalemia 5.9 CO2 of 16 anion gap of 17.9 BUN is 66 creatinine 4.4 GFR 14 and the remainder of his hematologic labs are nonactionable. I then had an interactive discussion with nephrology on-call Dr. White about patient presentation VIZCARRA and patient management and he has been accepted in transfer to [facility] for further evaluation and care. <Rajeev Felipe MD - Last Filed: 11/24/24 11:53> Vital Signs: 11/24/24 10:17 11/24/24 10:59 Temperature 98.2 F 98.2 F Temperature Source Oral Pulse Rate 89 Pulse Rate [Left Radial] 92 H Respiratory Rate 20 20 Blood Pressure 145/85 H Blood Pressure [Right Arm] 143/94 H Blood Pressure Mean [Right Arm] 110 02 Sat by Pulse Oximetry 97 Oxygen Delivery Method Room Air Room Air Orders (Tests/Meds): ED MEDICATIONS Discontinued Medications Generic Name Dose Route Start Last Admin Trade Name Freq PRN Reason Stop Dose Admin Sodium Zirconium Cyclosilicate 10 gm 11/24/24 10:16 11/24/24 10:25 Lokelma 5gm Packet PO 11/24/24 10:17 10 gm ONCE ONE Administration Medical Decision Narrative: In summary patient is a 59-year-old male who presents to the emergency department for evaluation of acute on chronic renal failure and hyperkalemia. Patient is hemodynamically stable with a blood pressure 143/94 heart rate 92 with normal sinus rhythm on the bedside monitor breathing 20 times a minute satting at 97% room air upon arrival, afebrile at 98.2. Physical exam does reveal scattered excoriated areas over his body that are in very stages of healing consistent with his diagnosis of dermatitis in the past 3 weeks. Prese nts clinical bilateral to the base with adventitious sounds as heart rates S1-S2 regular rate and rhythm without murmurs gallops or thrills or dependent edema noted. Abdomen soft nontender no rebound guarding or rigidity.. Differential diagnosis includes acute on chronic renal failure versus hyperkalemia versus other electrolyte abnormalities versus iatrogenic kidney injury etc. Initial workup was done already today with his initial lab work and additional lab testing was considered however that was deferred and lieu of consultation with nephrology prior to implementing. Initial interventions include Lokelma based on his potassium today of 5.9. I considered additional measures including IV fluids calcium gluconate normal saline insulin and D50 however I deferred until consultation with nephrology. Initial workup reviewed by me does show hyponatremia of 134 hypokalemia 5.9 CO2 of 16 anion gap of 17.9 BUN is 66 creatinine 4.4 GFR 14 and the remainder of his hematologic labs are n onactionable. I then had an interactive discussion with nephrology on-call Dr. White about patient presentation VIZCARRA and patient management and he has been accepted in transfer to [facility] for further evaluation and care. I was consulted by the ROCHELLE, and we discussed the complexity of the problems being addressed.I approved the treatment and management plan for this patient?s care in the Emergency Department, thus performing a substantive portion of the medical decision making.Signed, Rajeev Felipe MD MBA Critical Care <ADY Villasenor - Last Filed: 11/24/24 11:02> Critical Care Time Critical Care Time: Yes Attestation: On 11/24/24, the high probability of a clinically significant, sudden or life threatening deterioration of the following system(s) required my full and direct attention, intervention and personal management. The time I documented below is in addition to time spent performing reported procedures but includes the following listed in this critical care notation. Total Time Total Critical Care Time: 35
[2024-11-24 10:17] VITALS: BP 143/94; PULSE 92; RESP 20; TEMP 36.8; O2SAT 97; BMI 28.5
[2024-11-24] MEDS: LOKELMA 5GM PACKET 10 GM PO (10:25)
--- NOTE | 2024-11-24 10:29 | PC.NURSE ---
calling [facility] at this time.
--- NOTE | 2024-11-24 10:43 | PC.NURSE ---
Don o/p with [facility] at this time.
--- NOTE | 2024-11-24 10:56 | PC.NURSE ---
report called to caryn adams at [facility]
[2024-11-24 10:59] VITALS: BP 145/85; PULSE 89; RESP 20; TEMP 36.8; O2SAT 98
== END 2024-11-24 11:10 | disposition home or self-care (01) ==
PROVIDERS: Emergency Provider Emergency Medicine; PCP Family Medicine
DX: E87.5 Hyperkalemia (principal); N18.4 Chronic kidney disease, stage 4 (severe); R25.2 Cramp and spasm
CPT/HCPCS: 99291

== ENCOUNTER 2024-12-02 09:07 | Outpatient (CLI) | payer BC, SELFPAY ==
[2024-12-02 10:02] LABS: Anion Gap 11.3 mEq/L (5-15); Blood Urea Nitrogen 49 mg/dl (9-20); Calcium 8.8 mg/dl (8.4-10.2); Carbon Dioxide 21 mmol/L (22.0-30.0); Chloride 109 mmol/L (98-107); Estimated Glomerular Filt Rate 22 ml/min (>60); GFR (African American) 27 ML/MIN (>60); Glucose 126 mg/dl (74-100); Phosphorous 3.4 mg/dl (2.5-4.5); Potassium 4.3 mmoL/L (3.5-5.1); Sodium 137 mmol/L (136-145)
== END 2024-12-02 23:59 | disposition home or self-care (01) ==
LOC: LAB 09:09
PROVIDERS: PCP Family Medicine; Visit Provider Student in an Organized Health Care Education/Training Program
DX: N18.4 Chronic kidney disease, stage 4 (severe) (principal); D63.1 Anemia in chronic kidney disease; E78.5 Hyperlipidemia, unspecified; E87.5 Hyperkalemia; E83.9 Disorder of mineral metabolism, unspecified; M89.9 Disorder of bone, unspecified
CPT/HCPCS: 36415; 80069